=== PATIENT | male | born 1980 | race Caucasian/White ===

== ENCOUNTER 2018-02-08 10:52 | Emergency (ER) | payer SELFPAY ==
[2018-02-08 10:56] VITALS: BP 141/86; PULSE 108; RESP 18; TEMP 37.3; O2SAT 98; BMI 22.8
== END 2018-02-08 13:15 | disposition left against medical advice (07) ==
PROVIDERS: PCP Family Medicine
DX: R42 Dizziness and giddiness (principal)
CPT/HCPCS: 99281; 99282

== ENCOUNTER 2019-01-15 10:05 | Emergency (ER) | payer OTHER, MEDICAID, SELFPAY ==
[2019-01-15] MEDS: HALOPERIDOL 5 MG/ML VIAL 10 MG (10:13)
[2019-01-15] MEDS: LORazepam 2 MG/ML INJ (10:13)
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
[2019-01-15] MEDS: SODIUM CHLORIDE 0.9% 1,000 ML 1000 ML IV (10:52)
[2019-01-15 10:54] VITALS: BP 108/71; PULSE 121; RESP 12; O2SAT 99
[2019-01-15 11:01] LABS: Add Manual Diff / Slide Review NO; Basophils Absolute Auto 100 /uL (0-100); Basophils Percent Auto 0.7 % (0-2); Eosinophils Absolute Auto 0 /uL (0-450); Eosinophils Percent Auto 0.5 % (2-4); Hematocrit 46.5 % (41-53); Hemoglobin 16.5 g/dL (13.5-17.5); Lymphocytes Absolute Auto 1500 /uL (1100-4500); Lymphocytes Percent Auto 15.8 % (25-40); Mean Corpuscular HGB Conc 35.5 % (30-36); Mean Corpuscular Hemoglobin 32.7 PG (26-34); Mean Corpuscular Volume 92.3 fL (80-100); Monocytes Absolute Auto 800 /uL (0-900); Monocytes Percent Auto 7.8 % (3-14); Neutrophils Absolute Auto 7300 /uL (1500-7000); Neutrophils Percent Auto 75.2 % (50-75); Platelet Count 278 X10^3/uL (150-400); Red Blood Cell Count 5.03 X10^6/uL (4.5-5.9); Red Cell Distribution Width 13.2 % (11.6-14.8); White Blood Cell Count 9.7 X10^3/uL (4.5-11.0)
--- NOTE | 2019-01-15 11:01 | PC.NURSE ---
Appears calm but when stimulated yells / lashes out. Unable to remove restraint at this time.
[2019-01-15 11:07] LABS: Acetaminophen < 10 ug/mL (10-30); Alanine Aminotransferase 23 IU/L (21-72); Albumin 4.9 g/dL (3.5-5.0); Albumin Globulin Ratio 1.6 (1.0-2.8); Alkaline Phosphatase 110 U/L (38-126); Aspartate Aminotransferase 44 IU/L (17-59); BUN Creatinine Ratio 14.2 (6-22); Bilirubin Total 1.7 mg/dL (0.2-1.3); Blood Urea Nitrogen 17 mg/dL (9-20); Carbon Dioxide 19 mmol/L (22-32); Chloride 104 mmol/L (98-107); Estimated Glomerular Filt Rate > 60.0 mL/min (>60); Ethanol (ETOH) < 10 mg/dL; Globulin 3.1 g/dL (1.7-4.1); Glucose 145 mg/dL (70-100); HEMOLYSIS 24 (0-50); Potassium 3.4 mmol/L (3.4-5.1); Salicylate < 1.0 mg/dL (<20); Sodium 140 mmol/L (137-145)
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
[2019-01-15 11:31] VITALS: BP 107/64; PULSE 91; RESP 12; O2SAT 99
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
[2019-01-15 11:44] LABS: Thyroid Stimulating Hormone 1.51 uIU/mL (0.47-4.68)
[2019-01-15 12:03] VITALS: BP 108/70; PULSE 100; RESP 18; O2SAT 98
--- NOTE | 2019-01-15 12:10 | PC.NURSE ---
Pt is now a/o x 3. Continues to startle /jump when stimulated but calms w/ verbal reassurance. Taking po fluids when offered. Pt can not verbalize that he will not attempt to hurt staff if I remove remaining restraint. Continues 1:1 observation. Will reassess and remove if he continues to be calm w/o violent actions.
[2019-01-15 13:49] VITALS: BP 110/70; PULSE 90; RESP 18; O2SAT 98
--- NOTE | 2019-01-15 13:59 | PC.NURSE ---
Pt is now a/o when awake and calm, following directions. Denies SI/HI. No urine tox yet (Have offered bathroom frequently). Discussed w/ Dr. Conley. Pt is no longer a threat to himself or others and is a/o x 3. If pt wants to leave, may. Will offer crisis services when pt is more awake. Discontinue 1:1 observation / q 15 min checks.
--- NOTE | 2019-01-15 16:50 | PC.NURSE ---
Awake, alert & oriented x 3. Updated that his son was w/ Jaspreet. Encouraged to eat and drink. Walked to bathroom. Continues to deny SI/HI.
[2019-01-15 16:52] LABS: Bacteria Urine None Seen
[2019-01-15 16:54] VITALS: BP 109/70; PULSE 91; RESP 18; O2SAT 93
[2019-01-15 16:59] LABS: Ur Creatinine Normal (Normal); Ur Specific Gravity Normal (Normal); Urine Tetrahydrocannabinol Positive (Negative); Urine pH Normal (Normal)
[2019-01-15 17:00] LABS: UR Morphine/Opiate cutoff 300 Negative (Negative); Urine Amphetamines Positive (Negative); Urine Barbiturates Negative (Negative); Urine Benzodiazepines Positive (Negative); Urine Cocaine Negative (Negative); Urine MDMA Negative (Negative); Urine Methadone Negative (Negative); Urine Methamphetamines Positive (Negative); Urine Phencyclidine Negative (Negative)
[2019-01-15 17:01] LABS: Urine Oxycodone Negative (Negative); Urine Tricyclic Antidepressant Negative (Negative)
[2019-01-15 17:04] LABS: Culture Indicated Urine Cult Not Indicated; Hyaline Casts Urine 5-10/LPF; Mucus Urine 3+ (Negative); RBC Urine 1-5/HPF (0-5/HPF); Squamous Epithelial Cell Urine 5-10 /HPF (0-5/HPF); WBC Urine 5-10/HPF (0-5/HPF)
[2019-01-15 19:39] VITALS: BP 119/75; PULSE 89; RESP 16; O2SAT 96
--- NOTE | 2019-01-15 19:40 | PC.NURSE ---
Sitting up in bed eating and drinking. Awaiting ride from sister who called and said she was on her way.
[2019-01-15] MEDS: OLANZapine ODT 10 MG TAB PO (21:05)
--- NOTE | 2019-01-15 21:16 | PC.NURSE ---
Patient sitting up in bed eating and drinking. A&Ox3 and denies any hallucinations, SI, or HI. States he wants to go and see his son. I asked him if he would be interested in going to a crisis bed per conversation with Dr. Conley. Patient replies he will talk to his sister about it when she arrives. her ETA is about an hour. She is driving from [employer].
--- NOTE | 2019-01-15 21:21 | PC.NURSE ---
Sister has arrived and is at bedside. I came in to talk with them and she reports he should not go home because he is still hallucinating. He now admits with her at bedside that he is still having command auditory hallucinations. Dr. Ward at bedside. Patient now reports events of the week with some difficulty and is having trouble recalling when he used the meth. He states he has been using it on and off for the last several months maybe once a week since he got his job and stopped drinking alcohol. He states he may have used the meth on thursday, thursday, or thursday. Does not recall using it last night. He reports that he was not being truthful earlier but that he is still hearing voices telling him that he is under surveillance and that his cabin is a studio with cameras and that aliens are watching him. He recalls with detail how the voices were telling him to break a window and take out an outlet and the ceiling at his house last night. He states the voices are still there, denies HI or SI. He also reports that he has had these same auditory hallucinations off and on for the last six months or more. No history of documented mental health issues but sister reports that she suspects this however is unable to fully know if he was sober at the times that he reported the hallucinations to her.
[2019-01-15] MEDS: NICOTINE 21 MG PATCH TOP (21:24)
--- NOTE | 2019-01-15 21:33 | PC.NURSE ---
Per Dr. Ward the plan is to allow the patient to sleep ehre over night and speak with the SR VICE PRESIDENT in the morning. I will call the D[facility] and inform them of the paitnet.
--- NOTE | 2019-01-15 23:25 | PC.NURSE ---
At this time I called CPS to update them on the status of the patient's child Josiah. Per Abigail, who is the patient's sister, Josiah is currently with a Jaspreet Burgos and his who own the property where the patient and his son have been living in a cabin. I informed CPS of this and gave them the phone number for Jaspreet Burgos. I also gave them the number for Emily Stevens who is the patient's sister and has stated that she would be willing and ready to take care of Josiah if need be. She is here since she drove up from [place], [place] and is staying in a [facility]. Jaspreet Burgos: [phone] Emily Stevens: [phone]
--- NOTE | 2019-01-16 00:10 | PC.NURSE ---
Given a warm blanket.
[2019-01-16 02:49] VITALS: BP 108/66; PULSE 80; RESP 20; O2SAT 96
--- NOTE | 2019-01-16 10:46 | PC.NURSE ---
Spoke w/ sister at length who is concerned for pt's welfare. Pt continues to deny SI/HI but believes that his hallucinations while under the influence of meth are real. Denies active hallucinations. Provider to re-evaluate and dispo.
--- NOTE | 2019-01-16 11:01 | PC.NURSE ---
Dr. Conley in to re-evaluate. Will d/c patient. Pt refused services including psych assistance, rehab, drug counseling.
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
== END 2019-01-16 11:39 | disposition home or self-care (01) ==
PROVIDERS: Emergency Provider Emergency Medicine; PCP Family Medicine
DX: F15.929 Other stimulant use, unspecified with intoxication, unspecified (principal)
CPT/HCPCS: 36415; 80053; 80305; 80320; 80329; 81003; 81015; 84443; 85025; 93005; 96361; 96374; 96375; 99285; 99291; 99292; G0480; J1630; J2060

== ENCOUNTER 2019-02-18 17:35 | Emergency (ER) | payer OTHER, MEDICAID, SELFPAY ==
[2019-02-18 17:35] VITALS: PULSE 140; RESP 20; TEMP 37.2; O2SAT 98
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
--- NOTE | 2019-02-18 18:09 | PC.NURSE ---
multiple small areas on rt side of face.
== END 2019-02-18 17:41 | disposition home or self-care (01) ==
LOC: ED 17:45
PROVIDERS: Emergency Provider Emergency Medicine; PCP Family Medicine
DX: Z00.8 Encounter for other general examination (principal); S01.81XA Laceration without foreign body of other part of head, initial encounter; F10.929 Alcohol use, unspecified with intoxication, unspecified
CPT/HCPCS: 99282

== ENCOUNTER 2019-08-06 19:21 | Emergency (ER) | payer OTHER, MEDICAID, SELFPAY ==
[2019-08-06 19:27] VITALS: BP 153/92; PULSE 107; RESP 18; TEMP 37.1; O2SAT 96; BMI 23.7
[2019-08-06 19:47] LABS: Add Manual Diff / Slide Review NO; Basophils Absolute Auto 100 /uL (0-100); Basophils Percent Auto 0.9 % (0-2); Eosinophils Absolute Auto 100 /uL (0-450); Eosinophils Percent Auto 0.9 % (2-4); Hematocrit 45.3 % (41-53); Hemoglobin 15.9 g/dL (13.5-17.5); Lymphocytes Absolute Auto 3700 /uL (1100-4500); Mean Corpuscular HGB Conc 35.1 % (30-36); Mean Corpuscular Hemoglobin 32.5 PG (26-34); Mean Corpuscular Volume 92.6 fL (80-100); Monocytes Absolute Auto 800 /uL (0-900); Monocytes Percent Auto 6.5 % (3-14); Neutrophils Absolute Auto 6900 /uL (1500-7000); Neutrophils Percent Auto 59.7 % (50-75); Platelet Count 212 X10^3/uL (150-400); Red Blood Cell Count 4.89 X10^6/uL (4.5-5.9); Red Cell Distribution Width 13.9 % (11.6-14.8); White Blood Cell Count 11.6 X10^3/uL (4.5-11.0)
--- NOTE | 2019-08-06 19:53 | DI.CT.S_ITS ---
PROCEDURE: CT HEAD/BRAIN WO CON INDICATIONS: mental status change, reports of pain TECHNIQUE: Noncontrast 4.5 mm thick angled axial sections acquired from the foramen magnum to the vertex, with coronal and sagittal reformats. For radiation dose reduction, the following was used: automated exposure control, adjustment of mA and/or kV according to patient size. COMPARISON: [facility], CT, HEAD WITHOUT CONTRAST, 04/13/2016, 16:39. [facility], CT, HEAD WITHOUT CONTRAST, 04/08/2016, 2:07. FINDINGS: Image quality: Excellent. CSF spaces: Basal cisterns are patent. No extra-axial fluid collections. Ventricles are normal in size and shape. Brain: No midline shift. No intracranial masses or hemorrhage. Fortune-white matter interface is normal. Skull and face: Calvarium and visualized facial bones are intact, without suspicious lesions. Sinuses: Visualized sinuses and mastoids are clear. IMPRESSION: Normal for age, source of current altered mental status and pain symptoms is not seen. Dictated by: Jamil Harris M.D. on 08/06/2019 at 20:10 Approved by: Jamil Harris M.D. on 08/06/2019 at 20:11
[2019-08-06 20:01] LABS: Alanine Aminotransferase 26 IU/L (<50); Albumin 4.4 g/dL (3.5-5.0); Albumin Globulin Ratio 1.3 (1.0-2.8); Alkaline Phosphatase 146 U/L (38-126); Aspartate Aminotransferase 31 IU/L (17-59); BUN Creatinine Ratio 13.4 (6-22); Bilirubin Total 0.4 mg/dL (0.2-1.3); Blood Urea Nitrogen 11 mg/dL (9-20); Calcium 8.9 mg/dL (8.4-10.2); Carbon Dioxide 23 mmol/L (22-32); Chloride 108 mmol/L (98-107); Estimated Glomerular Filt Rate > 60.0 mL/min (>60); Globulin 3.4 g/dL (1.7-4.1); Glucose 126 mg/dL (70-100); Potassium 3.8 mmol/L (3.4-5.1); Sodium 143 mmol/L (137-145); Total Protein 7.8 g/dL (6.3-8.2)
[2019-08-06 20:08] LABS: HEMOLYSIS 25 (0-50)
[2019-08-06 20:11] LABS: Ethanol (ETOH) 350 mg/dL
[2019-08-06 20:47] LABS: Thyroid Stimulating Hormone 0.82 uIU/mL (0.47-4.68)
[2019-08-06 20:57] VITALS: BP 143/93; PULSE 104; RESP 16; O2SAT 98
--- NOTE | 2019-08-06 20:57 | ED.PSYCH ---
HPI - Psych General Chief Complaint: Psychiatric Symptoms Stated Complaint: Head pain Time Seen by Provider: 08/06/19 19:22 Source: patient and EMS Mode of arrival: EMS Limitations: no limitations History of Present Illness HPI Narrative: 39-year-old male daily smoker with history of methamphetamine and alcohol use presents by EMS with a chief complaint of headache and hearing voices. He states he called EMS because he has had these symptoms for upwards of a year and he sick of dealing with it. He admittedly takes drugs and drinks alcohol to quiet the voices. He is unsure exactly what they say but he denies any suicidal or homicidal ideation. He lives home alone. He denies any underlying mental health diagnoses. He last used methamphetamines 1-2 weeks ago. MD complaint: other Onset (ago): year(s) Duration: constant History of same: Yes Relieving factors: none Exacerbating factors: none Context: recent alcohol abuse and recent drug abuse Associated psychiatric symptoms: auditory hallucinations Associated symptoms: denies other symptoms Treatments prior to arrival: none Related Data Previous Rx's Medication Instructions Recorded mupirocin 2 % topical ointment 1 applic TOP BID #22 gram 01/14/19 olanzapine 10 mg PO BEDTIME #14 tab 08/06/19 Allergies Allergy/AdvReac Type Severity Reaction Status Date / Time No Known Drug Allergies Allergy Verified 02/08/18 10:56 Review of Systems Constitutional Constitutional: Denies chills, Denies fatigue, Denies fever(s), Denies frequent falls, Denies lethargy and Denies weakness Eyes Eyes: Denies change in vision, Denies eye discharge, Denies irritation and Denies loss of vision ENT Ears, Nose, Mouth, and Throat: Denies change in voice, Denies dizziness, Denies neck pain, Denies sore throat and Denies throat swelling Cardiovascular Cardiovascular: Denies chest pain, Denies irregular heart rhythm, Denies lightheadedness, Denies palpitations, Denies dyspnea, Denies dyspnea on exertion and Denies orthopnea Respiratory Respiratory: Denies cough, Denies dyspnea, Denies dyspnea on exertion and Denies wheezing Gastrointestinal Gastrointestinal: Denies abdominal pain, Denies change in bowel habits, Denies diarrhea, Denies nausea and Denies vomiting Genitourinary Genitourinary: Denies hematuria, Denies flank pain, Denies urinary incontinence and Denies urinary urgency Musculoskeletal Musculoskeletal: Denies back pain, Denies muscle weakness, Denies neck pain, Denies numbness and Denies tingling Integumentary/Breasts Skin/Breast: Denies pruritus, Denies erythema, Denies rash and Denies wounds Neurologic Neurologic: Denies behavioral changes, Denies confusion, Denies dizziness, Denies frequent falls, Denies loss of vision, Denies numbness, Denies tingling and Denies weakness Psychiatric Psychiatric: Denies anxiety, Denies behavioral changes, Denies confusion, Denies depression, Reports hallucinations, Denies homicidal ideation and Denies suicidal ideation Endocrine Endocrine: Denies fatigue, Denies flushing and Denies palpitations Hematologic/Lymphatic Hematologic/Lymphatic: Denies easy bruising Allergic/Immunologic Allergic/Immunologic: Denies urticaria, Denies throat swelling and Denies wheezing Patient History Medical History Alcohol intoxication (Acute) Social History Smoking Status: Current every day smoker alcohol intake: current substance use type: methamphetamine Smoking Status: Current every day smoker alcohol intake frequency: 3 or more drinks per day Substance Use Type: does not use and marijuana Exam Narrative Exam Narrative: GENERAL: [39] year old patient appears stated age. Well-nourished, well-developed patient, mildly unkempt. Slurring of some words. Polite and cooperative HEAD: Atraumatic. Normocephalic. EYES: Pupils equal round and reactive. Extraocular motions intact. No scleral icterus. No injection or drainage. ENT: Nose without bleeding, purulent drainage. Throat without erythema, tonsillar hypertrophy or exudate. Airway patent. NECK: Trachea midline. Non tender CARDIOVASCULAR: Regular rate and rhythm without murmurs, gallops, or rubs. RESPIRATORY: Clear to auscultation. Breath sounds equal bilaterally. No wheezes, rales, or rhonchi. GASTROINTESTINAL: Abdomen soft, non-tender, nondistended. EXTREMITIES: No edema or joint tenderness. BACK: Nontender without deformity or crepitance. No flank tenderness. NEURO: AOx3. SKIN: No rash or erythema of visible areas Initial Vital Signs Initial Vital Signs: Vital Signs Temperature 98.8 F 08/06/19 19:27 Pulse Rate 107 H 08/06/19 19:27 Respiratory Rate 18 08/06/19 19:27 Blood Pressure 153/92 H 08/06/19 19:27 Pulse Oximetry 96 08/06/19 19:27 Course Course Course Narrative: 39-year-old male feeling much better after above-stated therapies. He says is speaking clearly and ambulates with a steady gait. He has no suicidal or homicidal ideation. He has good insight in wants to follow up with his doctors. He is able to contract for safety and demonstrates no safety risk to himself or others. Orders Ordered: ED Orders 08/06/19 19:38 EKG-12 Lead Stat 08/06/19 19:40 Complete Blood Count AUTO DIFF Stat Comprehensive Metabolic Panel Stat Ethanol (ETOH) Stat Thyroid Stimulating Hormone Stat 08/06/19 19:53 CT head/brain wo con Stat 08/06/19 20:40 Urine Drug Screen, Rapid Stat Discontinued Medications Olanzapine (Zyprexa Zydis) 10 mg PO NOW ONE Stop: 08/06/19 21:32 Last Admin: 08/06/19 21:34 Dose: 10 mg Documented by: JUAN ANTONIO Vital Signs Vital signs: Vital Signs - 8 hr 08/06/19 19:27 08/06/19 20:57 08/06/19 22:16 Temperature 98.8 F Pulse Rate 107 H 104 H 116 H Respiratory Rate 18 16 Blood Pressure 153/92 H Blood Pressure [rt arm] 143/93 H 156/84 H Pulse Oximetry 96 98 96 MDM - Psych Lab Data Result diagrams: 08/06/19 19:40 08/06/19 19:40 Labs: Lab Results 08/06/19 08/06/19 08/06/19 Range/Units 19:40 19:40 19:40 WBC 11.6 H (4.5-11.0) X10^3/uL RBC 4.89 (4.5-5.9) X10^6/uL Hgb 15.9 (13.5-17.5) g/dL Hct 45.3 (41-53) % MCV 92.6 (80-100) fL MCH 32.5 (26-34) PG MCHC 35.1 (30-36) % RDW 13.9 (11.6-14.8) % Plt Count 212 (150-400) X10^3/uL Neut % (Auto) 59.7 (50-75) % Lymph % (Auto) 32.0 (25-40) % [place] % (Auto) 6.5 (3-14) % Eos % (Auto) 0.9 L (2-4) % Baso % (Auto) 0.9 (0-2) % Neut # (Auto) 6900 (0302-2935) /uL Lymph # (Auto) 3700 (0455-2479) /uL [place] # (Auto) 800 (0-900) /uL Eos # (Auto) 100 (0-450) /uL Baso # (Auto) 100 (0-100) /uL Sodium 143 (137-145) mmol/L Potassium 3.8 (3.4-5.1) mmol/L Chloride 108 H (98-107) mmol/L Carbon Dioxide 23 (22-32) mmol/L BUN 11 (9-20) mg/dL Creatinine 0.82 (0.66-1.25) mg/dL Estimated GFR > 60.0 (>60) mL/min BUN/Creatinine Ratio 13.4 (6-22) Glucose 126 H (70-100) mg/dL Calcium 8.9 (8.4-10.2) mg/dL Total Bilirubin 0.4 (0.2-1.3) mg/dL AST 31 (17-59) IU/L ALT 26 (<50) IU/L Alkaline Phosphatase 146 H (38-126) U/L Total Protein 7.8 (6.3-8.2) g/dL Albumin 4.4 (3.5-5.0) g/dL Globulin 3.4 (1.7-4.1) g/dL Albumin/Globulin Ratio 1.3 (1.0-2.8) TSH 0.82 (0.47-4.68) uIU/mL U Opiates 300ng/mL cut (Negative) Ur Oxycodone Screen (Negative) Urine Methadone Screen (Negative) Ur Barbiturates Screen (Negative) U Tricyclic Antidepress (Negative) Ur Phencyclidine Scrn (Negative) Ur Amphetamines Screen (Negative) U Methamphetamines Scrn (Negative) Ur MDMA Scrn (Ecstasy) (Negative) U Benzodiazepines Scrn (Negative) Urine Cocaine Screen (Negative) U Marijuana (THC) Screen (Negative) Ethyl Alcohol 350 H ( - 10) mg/dL 08/06/19 Range/Units 20:40 WBC (4.5-11.0) X10^3/uL RBC (4.5-5.9) X10^6/uL Hgb (13.5-17.5) g/dL Hct (41-53) % MCV (80-100) fL MCH (26-34) PG MCHC (30-36) % RDW (11.6-14.8) % Plt Count (150-400) X10^3/uL Neut % (Auto) (50-75) % Lymph % (Auto) (25-40) % [place] % (Auto) (3-14) % Eos % (Auto) (2-4) % Baso % (Auto) (0-2) % Neut # (Auto) (9464-7043) /uL Lymph # (Auto) (6990-4259) /uL [place] # (Auto) (0-900) /uL Eos # (Auto) (0-450) /uL Baso # (Auto) (0-100) /uL Sodium (137-145) mmol/L Potassium (3.4-5.1) mmol/L Chloride (98-107) mmol/L Carbon Dioxide (22-32) mmol/L BUN (9-20) mg/dL Creatinine (0.66-1.25) mg/dL Estimated GFR (>60) mL/min BUN/Creatinine Ratio (6-22) Glucose (70-100) mg/dL Calcium (8.4-10.2) mg/dL Total Bilirubin (0.2-1.3) mg/dL AST (17-59) IU/L ALT (<50) IU/L Alkaline Phosphatase (38-126) U/L Total Protein (6.3-8.2) g/dL Albumin (3.5-5.0) g/dL Globulin (1.7-4.1) g/dL Albumin/Globulin Ratio (1.0-2.8) TSH (0.47-4.68) uIU/mL U Opiates 300ng/mL cut Negative (Negative) Ur Oxycodone Screen Negative (Negative) Urine Methadone Screen Negative (Negative) Ur Barbiturates Screen Negative (Negative) U Tricyclic Antidepress Negative (Negative) Ur Phencyclidine Scrn Negative (Negative) Ur Amphetamines Screen Negative (Negative) U Methamphetamines Scrn Negative (Negative) Ur MDMA Scrn (Ecstasy) Negative (Negative) U Benzodiazepines Scrn Negative (Negative) Urine Cocaine Screen Negative (Negative) U Marijuana (THC) Screen Negative (Negative) Ethyl Alcohol ( - 10) mg/dL Urine Dip Bedside Urine Glucose Negative Bedside Urine Bilirubin - Negative Bedside Urine Ketone - Negative Urine Specific [place] 1.010 Bedside Urine Occult Blood - Negative Bedside Urine pH 6.0 Bedside Urine Protein - Negative Bedside Urine Urobilinogen - Negative Bedside Urine Nitrite - Negative Bedside Urine Leukocytes - Negative Esterase Imaging Data CT scan - head: Radiologist's Impression: Nelson Whitt 39 M [address] [address] [address] Scan Report Signed Patient: Nelson Whitt LMR#: [id number] : 1980Acct:[id number] Age/Sex: 39 / MDate of Service: 08/06/19 Loc: ED Accession Number: [id number] Procedure: CT head/brain wo con Ordering Provider: Dann Ward D.O. PROCEDURE: CT HEAD/BRAIN WO CON INDICATIONS: mental status change, reports of pain TECHNIQUE: Noncontrast 4.5 mm thick angled axial sections acquired from the foramen magnum to the vertex, with coronal and sagittal reformats. For radiation dose reduction, the following was used: automated exposure control, adjustment of mA and/or kV according to patient size. COMPARISON: [facility], CT, HEAD WITHOUT CONTRAST, 04/13/2016, 16:39. [facility], CT, HEAD WITHOUT CONTRAST, 04/08/2016, 2:07. FINDINGS: Image quality: Excellent. CSF spaces: Basal cisterns are patent. No extra-axial fluid collections. Ventricles are normal in size and shape. Brain: No midline shift. No intracranial masses or hemorrhage. [place]-white matter interface is normal. Skull and face: Calvarium and visualized facial bones are intact, without suspicious lesions. Sinuses: Visualized sinuses and mastoids are clear. IMPRESSION: Normal for age, source of current altered mental status and pain symptoms is not seen. Dictated by: Jamil Harris M.D. on 08/06/2019 at 20:10 Approved by: Jamil Harris M.D. on 08/06/2019 at 20:11 Discharge Plan Departure Patient Disposition: Home Clinical Impression: Alcohol intoxication Qualifiers: Complication of substance-induced condition: uncomplicated Qualified Code(s): F10.920 - Alcohol use, unspecified with intoxication, uncomplicated Instructions: DI for Psychosis Activity Restrictions/Additional Instructions: *You have been diagnosed with [auditory hallucinations] *What to do: *Take medications as directed *Follow up with your primary care provider in 2-3 days, call for an appointment. Let them know you were seen in the Emergency Department and that we ask that you be seen in follow up *Return to ER if you should have any new, worsening or concerning symptoms Prescriptions: New olanzapine 10 mg tablet 10 mg PO BEDTIME Qty: 14 RF: 0 No Action mupirocin 2 % ointment 1 applic TOP BID Qty: 22 RF: 0 Referrals: [facility] [Outside] [facility] [Outside] Jose Olivo MD [Physician] - Luis Miguel Zheng MD [Primary Care Provider] -
[2019-08-06 21:03] LABS: UR Morphine/Opiate cutoff 300 Negative (Negative); Ur Creatinine Normal (Normal); Ur Specific Gravity Normal (Normal); Urine Amphetamines Negative (Negative); Urine Barbiturates Negative (Negative); Urine Benzodiazepines Negative (Negative); Urine Cocaine Negative (Negative); Urine MDMA Negative (Negative); Urine Methadone Negative (Negative); Urine Methamphetamines Negative (Negative); Urine Oxycodone Negative (Negative); Urine Phencyclidine Negative (Negative); Urine Tetrahydrocannabinol Negative (Negative); Urine Tricyclic Antidepressant Negative (Negative); Urine pH Normal (Normal)
[2019-08-06] MEDS: OLANZapine ODT 10 MG TAB PO (21:34)
[2019-08-06 22:16] VITALS: BP 156/84; PULSE 116; O2SAT 96
== END 2019-08-06 22:32 | disposition home or self-care (01) ==
PROVIDERS: Emergency Provider Emergency Medicine; PCP Family Medicine
DX: F10.920 Alcohol use, unspecified with intoxication, uncomplicated (principal); R44.0 Auditory hallucinations; R51 Headache; R47.81 Slurred speech
CPT/HCPCS: 36415; 70450; 80053; 80305; 80320; 81003; 84443; 85025; 93005; 99285

== ENCOUNTER 2019-08-22 19:41 | Inpatient (IN) | payer OTHER, MEDICAID, SELFPAY ==
[2019-08-22 19:52] VITALS: BP 157/90; PULSE 73; RESP 18; TEMP 37.1; O2SAT 100; BMI 25.0
[2019-08-22 20:29] VITALS: BP 138/87; PULSE 73; RESP 17; O2SAT 97
[2019-08-22] MEDS: MAGNESIUM SULFATE 2 GM, FOLIC ACID 1 MG, THIAMINE 100 MG, MULTIVITAMIN 10 ML in SODIUM ... IV (20:36)
[2019-08-22] MEDS: LORazepam 2 MG/ML INJ IV (20:36)
[2019-08-22 20:48] LABS: Add Manual Diff / Slide Review NO; Basophils Absolute Auto 0 /uL (0-100); Basophils Percent Auto 0.9 % (0-2); Eosinophils Absolute Auto 0 /uL (0-450); Eosinophils Percent Auto 0.3 % (2-4); Hematocrit 41.4 % (41-53); Hemoglobin 14.9 g/dL (13.5-17.5); Lymphocytes Absolute Auto 1100 /uL (1100-4500); Lymphocytes Percent Auto 20.2 % (25-40); Mean Corpuscular Hemoglobin 32.7 PG (26-34); Mean Corpuscular Volume 90.6 fL (80-100); Monocytes Absolute Auto 400 /uL (0-900); Monocytes Percent Auto 7.6 % (3-14); Neutrophils Absolute Auto 4000 /uL (1500-7000); Platelet Count 153 X10^3/uL (150-400); Red Blood Cell Count 4.56 X10^6/uL (4.5-5.9); Red Cell Distribution Width 14.4 % (11.6-14.8); White Blood Cell Count 5.6 X10^3/uL (4.5-11.0)
[2019-08-22 20:49] LABS: Alanine Aminotransferase 82 IU/L (<50); Albumin 4.4 g/dL (3.5-5.0); Albumin Globulin Ratio 1.3 (1.0-2.8); Alkaline Phosphatase 100 U/L (38-126); Aspartate Aminotransferase 69 IU/L (17-59); BUN Creatinine Ratio 20.5 (6-22); Bilirubin Total 1.3 mg/dL (0.2-1.3); Bilirubin Unconjugated 1.1 mg/dL (0.0-1.1); Blood Urea Nitrogen 16 mg/dL (9-20); Calcium 9.6 mg/dL (8.4-10.2); Carbon Dioxide 25 mmol/L (22-32); Chloride 97 mmol/L (98-107); Estimated Glomerular Filt Rate > 60.0 mL/min (>60); Ethanol (ETOH) < 10 mg/dL; Globulin 3.5 g/dL (1.7-4.1); Glucose 99 mg/dL (70-100); HEMOLYSIS 85 (0-50); Lipase 202 U/L (23-300); Magnesium 1.9 mg/dL (1.6-2.3); Potassium 4.6 mmol/L (3.4-5.1); Sodium 133 mmol/L (137-145); Total Protein 7.9 g/dL (6.3-8.2)
[2019-08-22 22:19] LABS: UR Morphine/Opiate cutoff 300 Negative (Negative); Ur Creatinine Normal (Normal); Ur Specific Gravity Normal (Normal); Urine Amphetamines Negative (Negative); Urine Barbiturates Negative (Negative); Urine Benzodiazepines Negative (Negative); Urine Cocaine Negative (Negative); Urine MDMA Negative (Negative); Urine Methadone Negative (Negative); Urine Methamphetamines Negative (Negative); Urine Oxycodone Negative (Negative); Urine Phencyclidine Negative (Negative); Urine Tetrahydrocannabinol Positive (Negative); Urine Tricyclic Antidepressant Negative (Negative); Urine pH Normal (Normal)
--- NOTE | 2019-08-22 23:09 | ED_ITS ---
HPI - General Adult General Chief complaint: Toxicology Problem Stated complaint: ETOH withdrawls Time Seen by Provider: 08/22/19 19:58 Source: patient and EMS Mode of arrival: EMS History of Present Illness HPI narrative: 39-year-old gentleman with alcohol use disorder presents requesting help with sobriety. He has been drinking up to half a gal of vodka a day he stopped completely yesterday and is beginning to have moderate withdrawal symptoms. He also has a myriad of other neurologic complaints including difficulty walking, he states that he is so shaky in his legs are so weak that he is unable to walk across the room without using arms to support himself. He complains of peripheral neuropathy. Also notes voices that are talking to him, typically friends and not having command hallucinations. Has no visual hallucinations. Most recently the voices are telling him that there is something in his left ear that he needs to have evaluated. He notes dramatic fluctuations in weight recently. He was incarcerated and once discharged gained 40 lb now has been in isolation in a hotel during the lock-down and has lost 20 lb. He believes that this is directly to related to what he is eating. He was seen in the emergency room approximately 2 weeks ago with similar complaints. A head CT at that time was unremarkable. He was given a prescription for olanzapine but has not tried it. At this time, he is feeling u nsafe in terms of being able to walk because of the weakness, is the voices more and more interested and more concerning. When asked about his methamphetamine use he states that he rarely uses it and believes it has been over a month since his last use. He denies other drug use. Related Data Previous Rx's Medication Instructions Recorded mupirocin 2 % topical ointment 1 applic TOP BID #22 gram 01/14/19 olanzapine 10 mg PO BEDTIME #14 tab 08/06/19 Allergies Allergy/AdvReac Type Severity Reaction Status Date / Time No Known Drug Allergies Allergy Verified 02/08/18 10:56 Review of Systems Review of Systems Narrative: Pertinent positive and negative findings as per HPI Remainder of review of systems is otherwise unremarkable for Constitutional: Fevers, chills, ENT: No sore throat, neck pain, ear pain CV: Chest pain, palpitations, Respiratory: Cough, wheeze, dyspnea GI: Nausea, diarrhea, change in bowel habits, black or bloody stools : Dysuria, hematuria, flank pain Skin: Rashes, nonhealing lesions Neuro: Syncope, dizziness, Psych: Depression, anxiety, suicidal ideation Endocrine: heat or cold intolerance, very dry skin Heme: Easy bruising or bleeding Patient History Medical History Alcohol intoxication (Acute) Alcohol use disorder (Acute) Social History household members: none Smoking Status: Smoker, status unknown alcohol intake: current substance use type: methamphetamine Smoking Status: Current every day smoker alcohol intake frequency: 3 or more drinks per day Substance Use Type: marijuana Exam Narrative Exam Narrative: General: Healthy appearing, in no mild distress. Able to give a complete history. Disheveled HEENT: Moist mucous membranes, normal sclera with reactive pupils, Neck: No JVD, supple Respiratory: Lungs are clear to auscultation, no wheezing no rales no rhonchi. Full and symmetrical air movement Cardiac: Regular rate and rhythm no murmurs no bruits Abdomen: Soft nontender good bowel tones, no hepatosplenomegaly no flank pain Skin: Warm and dry, no rashes, no palmar erythema or spider angiomas Neurologic: Globally weak, horizontal nystagmus with extreme rightward gaze. Significant weakness with tremor wide-based gait and inability to lift leg to begin forward walking motion without using arms for assistance. Extremities: No trauma, well perfused Psych: Cooperative, flat affect, complains of auditory hallucination but not responding to internal stimuli during our exam Initial Vital Signs Initial Vital Signs: Vital Signs Temperature 98.7 F 08/22/19 19:52 Pulse Rate 73 08/22/19 19:52 Respiratory Rate 18 08/22/19 19:52 Blood Pressure 157/90 H 08/22/19 19:52 Pulse Oximetry 100 08/22/19 19:52 Course Orders Ordered: ED Orders 08/22/19 19:58 Consult to [facility] - Automatic Wheel Line Operator Stat 08/22/19 20:28 Complete Blood Count AUTO DIFF Stat Comprehensive Metabolic Panel Stat Ethanol (ETOH) Stat Hepatic (Liver) Panel Stat Lipase Stat Magnesium Stat 08/22/19 21:44 Urine Drug Screen, Rapid Stat Acetaminophen (Tylenol) 650 mg PO Q6HR PRN PRN Reason: Fever/Mild Pain (1-3) Chlordiazepoxide HCl (Librium) 25 mg PO TID [facility] Clonidine HCl (Catapres) 0.1 mg PO Q4HR PRN PRN Reason: Alcohol Withdrawal Clonidine HCl (Catapres) 0.1 mg PO Q4HR PRN PRN Reason: Alcohol Withdrawal Folic Acid (Folic Acid) 1 mg PO DAILY [facility] Folic Acid (Folic Acid) 1 mg PO DAILY [facility] Magnesium Sulfate 2 gm/ Folic Acid 1 mg/ Thiamine HCl 100 mg / Multivitamins 10 ml/ Sodium Chloride 1,015.2 mls @ 125 mls/hr IV NOW ONE Stop: 08/23/19 04:05 Last Infusion: 08/23/19 00:53 Dose: 0 mls/hr Documented by: Admin: 08/22/19 20:36 Dose: 125 mls/hr Documented by: CRISTOFER Sodium Chloride (Normal Saline 0.9%) 1,000 mls @ 125 mls/hr IV CONT [facility] Ibuprofen (Advil) 600 mg PO Q6HR PRN PRN Reason: Fever/Mild Pain (1-3) Lorazepam (Ativan) 2 mg PO Q4HR [facility]; Protocol Multivitamins (Tab-A-Gaudencio) 1 tab PO DAILY [facility] Multivitamins (Tab-A-Gaudencio) 1 tab PO DAILY [facility] Naloxone HCl (Narcan) 0.2 mg IV Q2MIN PRN PRN Reason: Opiate Reversal Nicotine (Nicoderm) 14 mg TOP DAILY [facility] Ondansetron HCl (Zofran) 4 mg IV Q8HR PRN PRN Reason: Nausea And Vomiting Ondansetron HCl (Zofran) 4 mg IV Q6HR PRN PRN Reason: Nausea And Vomiting Thiamine HCl (Vitamin B-1) 100 mg PO DAILY [facility] Stop: 08/26/19 09:01 Thiamine HCl (Vitamin B-1) 100 mg PO DAILY [facility] Stop: 08/26/19 09:01 Discontinued Medications Lorazepam (Ativan) 2 mg IV NOW ONE Stop: 08/22/19 19:59 Last Admin: 08/22/19 20:36 Dose: 2 mg Documented by: CRISTOFER Lorazepam (Ativan) 0 mg IV CIWAPRN PRN; Protocol PRN Reason: Alcohol Withdrawal Lorazepam (Ativan) 2 mg PO CIWAPRN PRN PRN Reason: Alcohol Withdrawal Vital Signs Vital signs: Vital Signs - 8 hr 08/22/19 19:52 08/22/19 20:29 Temperature 98.7 F Pulse Rate 73 73 Respiratory Rate 18 17 Blood Pressure 157/90 H Blood Pressure [Right Arm] 138/87 Pulse Oximetry 100 97 Medical Decision Making Medical Records Medical records reviewed: Yes I reviewed the patient's medical records. Lab Data Lab results reviewed: Yes I reviewed the patient's lab results. Result diagrams: 08/22/19 20:28 08/22/19 20:28 Labs: Lab Results 08/22/19 08/22/19 08/22/19 Range/Units 20:28 20:28 21:44 WBC 5.6 (4.5-11.0) X10^3/uL RBC 4.56 (4.5-5.9) X10^6/uL Hgb 14.9 (13.5-17.5) g/dL Hct 41.4 (41-53) % MCV 90.6 (80-100) fL MCH 32.7 (26-34) PG MCHC 36.0 (30-36) % RDW 14.4 (11.6-14.8) % Plt Count 153 (150-400) X10^3/uL Neut % (Auto) 71.0 (50-75) % Lymph % (Auto) 20.2 L (25-40) % [place] % (Auto) 7.6 (3-14) % Eos % (Auto) 0.3 L (2-4) % Baso % (Auto) 0.9 (0-2) % Neut # (Auto) 4000 (4323-3934) /uL Lymph # (Auto) 1100 (1964-7009) /uL [place] # (Auto) 400 (0-900) /uL Eos # (Auto) 0 (0-450) /uL Baso # (Auto) 0 (0-100) /uL Sodium 133 L (137-145) mmol/L Potassium 4.6 (3.4-5.1) mmol/L Chloride 97 L (98-107) mmol/L Carbon Dioxide 25 (22-32) mmol/L BUN 16 (9-20) mg/dL Creatinine 0.78 (0.66-1.25) mg/dL Estimated GFR > 60.0 (>60) mL/min BUN/Creatinine Ratio 20.5 (6-22) Glucose 99 (70-100) mg/dL Calcium 9.6 (8.4-10.2) mg/dL Magnesium 1.9 (1.6-2.3) mg/dL Total Bilirubin 1.3 (0.2-1.3) mg/dL Conjugated Bilirubin 0.0 (0.0-0.3) md/dL Unconjugated Bilirubin 1.1 (0.0-1.1) mg/dL AST 69 H (17-59) IU/L ALT 82 H (<50) IU/L Alkaline Phosphatase 100 (38-126) U/L Total Protein 7.9 (6.3-8.2) g/dL Albumin 4.4 (3.5-5.0) g/dL Globulin 3.5 (1.7-4.1) g/dL Albumin/Globulin Ratio 1.3 (1.0-2.8) Lipase 202 (23-300) U/L U Opiates 300ng/mL cut Negative (Negative) Ur Oxycodone Screen Negative (Negative) Urine Methadone Screen Negative (Negative) Ur Barbiturates Screen Negative (Negative) U Tricyclic Antidepress Negative (Negative) Ur Phencyclidine Scrn Negative (Negative) Ur Amphetamines Screen Negative (Negative) U Methamphetamines Scrn Negative (Negative) Ur MDMA Scrn (Ecstasy) Negative (Negative) U Benzodiazepines Scrn Negative (Negative) Urine Cocaine Screen Negative (Negative) U Marijuana (THC) Screen Positive H (Negative) Ethyl Alcohol < 10 ( - 10) mg/dL Urine Dip Bedside Urine Glucose Negative Bedside Urine Bilirubin - Negative Bedside Urine Ketone + 15 Urine Specific [place] 1.010 Bedside Urine Occult Blood - Negative Bedside Urine pH 7.5 Bedside Urine Protein +/- 15 Bedside Urine Urobilinogen - Negative Bedside Urine Nitrite - Negative Bedside Urine Leukocytes - Negative Esterase Urine is in fact free from methamphetamine. Mild transaminase elevation consistent with alcohol hepatitis. Remainder of labs are reassuring Point of care testing: Urine Dip Bedside Urine Glucose Negative Bedside Urine Bilirubin - Negative Bedside Urine Ketone + 15 Urine Specific [place] 1.010 Bedside Urine Occult Blood - Negative Bedside Urine pH 7.5 Bedside Urine Protein +/- 15 Bedside Urine Urobilinogen - Negative Bedside Urine Nitrite - Negative Bedside Urine Leukocytes - Negative Esterase [facility] Narrative Medical decision making narrative: 39-year-old gentleman who has had periods of heavy drinking over the years. Currently interested in stopping. He notes that he has had seizure-like activity when he has tried to stop drinking but has not had overt seizures. Over the past weeks he has noticed that his gait has become increasingly unstable and weaker to the point that he is unable to truly ambulate at this time. He is cognitively appropriate at this time. He reports auditory hallucinations but is not responding to be used during our conversat ion. Denies any visual hallucinations. Notes that the hallucinations have been bothering him for over a year and that was part of the reason he was drinking, to quiet the voices. Given the significant dietary changes recent dramatic weight fluctuations and the progressive neurologic symptoms and gait difficulties I am concerned that this may be presentation of thiamin deficiency/wernicke-Korsdkoff syndrome. I am going to recommend a medical admission for complete alcohol detox. We may be able to obtain inpatient psychiatric consultation regarding the auditory hallucinations and then help him figure out which type of longer term treatment is going to be best for his alcohol use disorder. Discharge Plan Departure Admit Date/Time: 08/23/19 00:50 Admit Provider: Kati Bryant
[2019-08-23] VITALS (14 sets, daily range): BP systolic 123–147; BP diastolic 77–91; PULSE 58–79; RESP 16–28; TEMP 36.6–37.1; O2SAT 98–100; BMI 25.0
--- NOTE | 2019-08-23 02:40 | P.HP_ITS ---
History of Present Illness History of Present Illness Date Patient Seen: 08/23/19 Time Patient Seen: 01:00 Chief complaint: ETOH withdrawal, unable to walk, hallucinations Narrative: Nelson Whitt is a 39-year-old male with multiple visits and 1 prior inpatient hospitalization who presents for alcohol withdrawal. He states that he has been drinking about 1 bottle of vodka daily. States that he has been hearing voices for over a year and they tell him to yusuf ck out a foreign object in his ear. He was requesting an x-ray to see if there was something in his ears. The patient denies a history of psychiatric diagnoses or any family history of such including bipolar disorder or schizophrenia. Review of his prior chart indicated that on other occasions when he was seen in the emergency department for either alcohol or methamphetamine abuse, he was hallucinating during those times. The patient did state he has been through inpatient rehab once a few years ago. Per the ED for provider the patient was unable to walk and when he did try to walk he was holding on to anything on the periphery and walking with a very wide gait. Patient also indicated he had troubles walking and needed to balance himself against other objects or the jain to walk. The ED provider indicated to me that the patient was observing COVID-19 sord-ru-ysud orders and apparently put on quite a bit a weight. Then he started to drink and lost much of the weight that he had previously gained. I was not able to observe his walking however in the ED was determined he was not safe to be able to walk or go home. Patient denies shortness of breath, chest pain, abdominal pain, he does endorse having diarrhea for about the last week and complaints of inability to walk as stated above. Patient History Medical History Alcohol intoxication (Acute) Alcohol use disorder (Acute) Alcohol withdrawal delirium, acute, mixed level of activity (Acute) Family & Social History Family History Father Fire accident Mother Cancer Social History: household members none Prior Living Arrangements Homeless Safety & Behavioral: Feels Safe in Current Yes Environment Been Physically Hurt or No Threatened By a Person Suicidal Ideation Description None Suicide Plan Description No Plan Tobacco & Substance use: Tobacco type cigarettes Smoking Status Smoker, status unknown Smoking packs per day 1 alcohol intake current, alcohol intake frequency 1/2 bottle of vodka/day Substance Use Type marijuana, prior hx of methamphetamine use Meds Home Medications and Allergies Home Medications Medication Instructions Recorded Confirmed Type mupirocin 2 % topical ointment 1 applic TOP BID #22 gram 01/14/19 01/14/19 Rx olanzapine 10 mg PO BEDTIME #14 tab 08/06/19 Rx Allergies Allergy/AdvReac Type Severity Reaction Status Date / Time No Known Drug Allergies Allergy Verified 02/08/18 10:56 Review of Systems Review of Systems ROS: Yes All systems reviewed with the patient and are negative except as otherwise documented Exam Vital Signs (past 8 hours): - 08/22/19 19:52 08/22/19 20:29 08/23/19 01:32 Temperature 98.7 F 97.8 F Pulse Rate 73 73 78 Respiratory Rate 18 17 28 H Blood Pressure 157/90 H 147/88 H Blood Pressure [Right Arm] 138/87 Pulse Oximetry 100 97 99 08/23/19 01:34 Temperature 97.8 F Pulse Rate 78 Respiratory Rate 28 H Blood Pressure 147/88 H Blood Pressure [Right Arm] Pulse Oximetry 99 Oxygen Delivery Method Room Air Oxygen Flow Rate 0 Narrative Exam Narrative: Gen: Alert, oriented, well-developed 39 y.o. male, lethargic HEENT: normocephalic, atraumatic, conjunctiva clear, sclera non-icteric, has a vertical and superficial laceration of the lower lip, oral mucosa pink and moist Neck: supple, full ROM, no JVD, trachea is midline Resp: Lungs CTA, non-labored breathing CV: RRR, no murmur or rubs Abd: soft, non-tender, normoactive BTs Skin: no lesions or rashes, dry and intact Neuro: Very tremulous, unable to sit upright steadily, alert and oriented X 2 Extremities: moves all 4 extremities, negative Rory?s sign Psyche: lethargic, normal mood and affect. Objective Labs Result Diagrams: 08/22/19 20:28 08/22/19 20:28 Labs: Laboratory Results - last 24 hr 08/22/19 08/22/19 08/22/19 20:28 20:28 21:44 WBC 5.6 RBC 4.56 Hgb 14.9 Hct 41.4 MCV 90.6 MCH 32.7 MCHC 36.0 RDW 14.4 Plt Count 153 Neut % (Auto) 71.0 Lymph % (Auto) 20.2 L [place] % (Auto) 7.6 Eos % (Auto) 0.3 L Baso % (Auto) 0.9 Neut # (Auto) 4000 Lymph # (Auto) 1100 [place]atham # (Auto) 400 Eos # (Auto) 0 Baso # (Auto) 0 Sodium 133 L Potassium 4.6 Chloride 97 L Carbon Dioxide 25 BUN 16 Creatinine 0.78 Estimated GFR > 60.0 BUN/Creatinine Ratio 20.5 Glucose 99 Calcium 9.6 Magnesium 1.9 Total Bilirubin 1.3 Conjugated Bilirubin 0.0 Unconjugated Bilirubin 1.1 AST 69 H ALT 82 H Alkaline Phosphatase 100 Total Protein 7.9 Albumin 4.4 Globulin 3.5 Albumin/Globulin Ratio 1.3 Lipase 202 U Opiates 300ng/mL cut Negative Ur Oxycodone Screen Negative Urine Methadone Screen Negative Ur Barbiturates Screen Negative U Tricyclic Antidepress Negative Ur Phencyclidine Scrn Negative Ur Amphetamines Screen Negative U Methamphetamines Scrn Negative Ur MDMA Scrn (Ecstasy) Negative U Benzodiazepines Scrn Negative Urine Cocaine Screen Negative U Marijuana (THC) Screen Positive H Ethyl Alcohol < 10 Assessment & Plan Assessment & Plan narrative: Nelson Whitt will be admitted for acute alcohol withdrawal and for a psyche shannan luation of his hallucinations Acute alcohol withdrawal, present on admission -patient was very tremulous and unable to ambulate -WA protocol with p.o. 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 Olivo, psychiatry, please call him in the morning -patient is likely going to require an inpatient psychiatric stay to get a better handle on his auditory hallucinations which may be causing him to drink Consults: Dr. Olivo, Psychiatry, consult and involvement is appreciated. Patient is inpatient status as his stay islikely to exceed 2 midnights. FEN: NS at 125 ml/hour after completion of the banana bag, regular diet, CMP in the am. VTE prophylaxis: Bilateral compression stockings Dispo: Unknown at this time Code Status: Full code COVID-19 COVID-19 status: Not tested
[2019-08-23] MEDS: IBUPROFEN 600 MG TABLET PO ×2 (03:15→08:49)
[2019-08-23] MEDS: chlordiazePOXIDE 25 MG CAPSULE PO ×4 (03:15→20:53)
[2019-08-23] MEDS: THIAMINE 100 MG TABLET PO ×2 (03:15→08:49)
--- NOTE | 2019-08-23 03:26 | PC.NURSE ---
Entry Level Finance Note: 0110: Admitted to ICU room 228 as floor care patient, from ER, via wheelchair. Vital signs stable. Pt is alert, oriented X3. IV in place in rt upper arm. Pt placed on telemetry. Pt oriented to room and nurse call simon. SCDs placed.
[2019-08-23 05:02] LABS: Add Manual Diff / Slide Review NO; Basophils Absolute Auto 100 /uL (0-100); Eosinophils Absolute Auto 0 /uL (0-450); Eosinophils Percent Auto 0.8 % (2-4); Hematocrit 40.8 % (41-53); Hemoglobin 14.7 g/dL (13.5-17.5); Lymphocytes Absolute Auto 1900 /uL (1100-4500); Lymphocytes Percent Auto 33.8 % (25-40); Mean Corpuscular Hemoglobin 32.9 PG (26-34); Mean Corpuscular Volume 91.4 fL (80-100); Monocytes Absolute Auto 600 /uL (0-900); Monocytes Percent Auto 11.2 % (3-14); Neutrophils Absolute Auto 3000 /uL (1500-7000); Neutrophils Percent Auto 53.2 % (50-75); Platelet Count 147 X10^3/uL (150-400); Red Blood Cell Count 4.46 X10^6/uL (4.5-5.9); Red Cell Distribution Width 14.4 % (11.6-14.8); White Blood Cell Count 5.6 X10^3/uL (4.5-11.0)
[2019-08-23 05:12] LABS: Alanine Aminotransferase 74 IU/L (<50); Albumin Globulin Ratio 1.2 (1.0-2.8); Alkaline Phosphatase 107 U/L (38-126); Aspartate Aminotransferase 75 IU/L (17-59); Bilirubin Total 0.8 mg/dL (0.2-1.3); Blood Urea Nitrogen 16 mg/dL (9-20); Calcium 9.3 mg/dL (8.4-10.2); Carbon Dioxide 28 mmol/L (22-32); Chloride 99 mmol/L (98-107); Estimated Glomerular Filt Rate > 60.0 mL/min (>60); Globulin 3.3 g/dL (1.7-4.1); Glucose 105 mg/dL (70-100); HEMOLYSIS < 15 (0-50); Potassium 4.9 mmol/L (3.4-5.1); Sodium 134 mmol/L (137-145); Total Protein 7.3 g/dL (6.3-8.2)
[2019-08-23] MEDS: SODIUM CHLORIDE 0.9% 1,000 ML 125 ML IV ×3 (05:21→22:08)
[2019-08-23] MEDS: LORazepam 1 MG TABLET 2 MG PO ×5 (05:21→20:54)
[2019-08-23] MEDS: NICOTINE 7 MG PATCH TOP (08:45)
[2019-08-23] MEDS: FOLIC ACID 1 MG TABLET PO (08:50)
[2019-08-23] MEDS: MULTIVITAMIN 1 TABLET 1 TAB PO (08:50)
--- NOTE | 2019-08-23 09:40 | PM.CHAP ---
Addendum entered by Fortunato Guardado 08/24/19 11:35: Received email from [facility] briefcase sewer for pt's son, Josiah (corrected spelling) and passed her contact information on to pt. Rachell Gore can be contaced at [phone] or [email or web address] Addendum entered by Fortunato Guardado 08/23/19 10:15: Talked to sister, Emily, who was pleased to hear that Pt is safe. Sister is in contact with the owners of the [facility] where pt had been staying. She reported that they are open to his return but do not allow alcohol on the property. Original Note: Short visit with pt who was encouraged to be in a safe place and said he was ready to get back to recovery. Pt's family were good friends. Pt asked me to check on son, Cesia, and sister, Emily, who lives in [place]. Star Guardado [phone]
[2019-08-23] MEDS: ACETAMINOPHEN 325 MG TABLET 650 MG PO (12:38)
[2019-08-23] MEDS: cloNIDine 0.1 MG TABLET PO (12:39)
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
--- NOTE | 2019-08-23 13:49 | DI.MRI.S_ITS ---
PROCEDURE: MR HEAD/BRAIN WO/W CON INDICATIONS: r/o cerebellar degeneration TECHNIQUE: Noncontrast axial T1 spin echo, axial T2 fast spin echo, sagittal and axial FLAIR, coronal T2 fast spin echo, axial gradient echo, axial diffusion and ADC through the brain. After the administration of contrast, axial and coronal 3D VIBE or T1 spin echo with fat saturation through the brain. COMPARISON: None. FINDINGS: Image quality: Patient motion artifact on multiple sequences. Diagnostic image quality. CSF Spaces: Basal cisterns are patent. No extra-axial fluid collections. Ventricles are normal in size and shape. Brain: No midline shift. No intracranial bleeds or masses. No abnormal intracranial enhancement. The brainstem appears normal. Diffusion-weighted images demonstrate no acute ischemic insults. No chronic ischemic insults. Normal intravascular flow voids are present. Skull and face: Calvarial marrow is normal in signal. Orbits appear normal. Sinuses: Sinuses and mastoids appear clear. IMPRESSION: Unremarkable brain MRI. No evidence of acute stroke, hemorrhage, or mass. Dictated by: Constantine Graham M.D. on 08/23/2019 at 15:31 Approved by: Constantine Graham M.D. on 08/23/2019 at 15:50
--- NOTE | 2019-08-23 16:39 | PM.EVENT ---
Event Note Date Patient Seen: 08/23/19 Event Note: The patient is a 39-year-old male who was admitted to the hospital for alcohol withdrawal. He does report auditory hallucinations as well. He is tremulous, tachycardic, and minimally confused. Patient also complains of difficulty ambulating related to unsteady gait MRI of the brain was obtained to rule out a cerebellar process. MRI was negative. Patient will continue on Librium, IV hydration, and we will consult social work for possible inpatient rehabilitation stay
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
[2019-08-24] VITALS (12 sets, daily range): BP systolic 119–140; BP diastolic 70–88; PULSE 50–76; RESP 14–24; TEMP 36.1–37.2; O2SAT 96–99
[2019-08-24] MEDS: LORazepam 1 MG TABLET 2 MG PO ×4 (01:15→12:31)
[2019-08-24] MEDS: SODIUM CHLORIDE 0.9% 1,000 ML 125 ML IV (06:20)
[2019-08-24] MEDS: MULTIVITAMIN 1 TABLET 1 TAB PO (09:26)
[2019-08-24] MEDS: IBUPROFEN 600 MG TABLET PO (09:27)
[2019-08-24] MEDS: FOLIC ACID 1 MG TABLET PO (09:30)
[2019-08-24] MEDS: THIAMINE 100 MG TABLET PO (09:30)
[2019-08-24] MEDS: chlordiazePOXIDE 25 MG CAPSULE PO ×3 (09:30→20:54)
[2019-08-24] MEDS: SODIUM CHLORIDE 0.9% FLUSH 10 ML IV ×2 (12:30→22:29)
--- NOTE | 2019-08-24 13:03 | PM.PN.1 ---
Subjective Subjective Date Patient Seen: 08/24/19 Interval history: Patient is a 39-year-old male admitted to the hospital for alcohol dependence and withdrawal. He had auditory hallucinations and gait abnormalities. Patient reports he feels better. Has no significant hallucinations. He is somewhat weak and has required a walker to ambulate. He did have an MRI of the brain which was negative. Patient is awaiting evaluation for possible transfer to inpatient drug rehabilitation Exam Vital Signs (past 8 hours): - 08/24/19 07:00 08/24/19 08:00 08/24/19 09:13 Temperature 97.1 F L Pulse Rate 68 50 L Respiratory Rate 20 16 Blood Pressure 122/79 137/87 Pulse Oximetry 96 98 08/24/19 12:00 08/24/19 12:14 Temperature 99.0 F Pulse Rate 74 72 Respiratory Rate 17 18 Blood Pressure 140/88 137/87 Pulse Oximetry 99 96 Oxygen Delivery Method Room Air Oxygen Flow Rate 0 Narrative Exam Narrative: 39-year-old resting comfortably Lungs: Clear to auscultation Cardiac exam: Regular rate and rhythm normal S1-S2 Abdomen: Soft nontender nondistended Extremities: No edema, no tremor Objective Labs Result Diagrams: 08/23/19 04:37 08/23/19 04:37 Assessment & Plan Assessment & Plan narrative: 1. Alcohol dependence with alcohol withdrawal syndrome 2. Delirium tremors, improved 3. Auditory hallucinations likely related to substance abuse Plan will start Seroquel 100 mg at HS as recommended by Dr. ware Continue CIWA protocol Anticipate transfer to inpatient rehabilitation
--- NOTE | 2019-08-24 13:40 | CM.DPC ---
DCP Inpt CD Tx planning: Per , pt seems to be stable medically, MRI results came back negative, and RN plans to help pt to shower and ambulate today and pt not tremulous today. Pt medically cleared for Inpt treatment as of later today. Per Dr. 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 Patient still agreeable to voluntary Inpt CD treatment. SW called [facility] ([facility]) in [place] and confirmed they have openings but they do require a Substance Use Disorder (ODALIS) Assessment prior to acceptance and they cannot take an [place] assessment or the Psychiatrist Consult note as a replacement. LEIGH called [facility] and confirmed that pt is not currently established as a client at this time since he has not maintained contact or appointments the past two weeks and they do not have a current or updated ODALIS assessment that they can provide to [facility] and they do not do community assessments outside of their building, pt would have to arrive in person next week for the assessment. LEIGH called [facility] in [place] and spoke to Waylon ([phone]) and confirmed they are still contracted to provide community ODALIS assessments and he confirmed that he has a clinician, Mamie Uriarte, who can completed bedside ODALIS assessment with pt today at 1600 and then it will take a couple hours to complete the pwk and assessment prior to sending the information to [facility] to help coordinate his intake for likely tomorrow. Pt has confirmed that he is agreeable with SW updating his sister. Pt's sister Emily Stevens [phone] called and SW updated her on the assessment today and likely d/c to [facility] and she is very thankful and appreciative. SW updated and RN. Plan: SW to follow for introducing pt to [facility] Mamie boswell at 1600 for assessment and following for coordination between [facility] and [facility] to get pt into voluntary Inpt CD tx. STEFANO Land
[2019-08-24] MEDS: NICOTINE 14 PATCH 14 MG TOP (14:23)
[2019-08-24] MEDS: QUETIAPINE 25 MG TABLET 100 MG PO (20:54)
[2019-08-24] MEDS: ONDANSETRON 4 MG/2 ML INJ IV (22:37)
[2019-08-25 00:58] VITALS: BP 116/74; PULSE 98; RESP 20; TEMP 36.4; O2SAT 98
[2019-08-25 01:00] VITALS: O2SAT 98
[2019-08-25] MEDS: IBUPROFEN 600 MG TABLET PO (01:05)
[2019-08-25 04:15] VITALS: BP 122/79; PULSE 56; RESP 16; TEMP 36.4; O2SAT 100
[2019-08-25 08:00] VITALS: BP 115/76; PULSE 66; RESP 17; TEMP 36.2; O2SAT 99
[2019-08-25] MEDS: NICOTINE 14 PATCH 14 MG TOP (08:29)
[2019-08-25] MEDS: chlordiazePOXIDE 25 MG CAPSULE PO (08:29)
[2019-08-25] MEDS: FOLIC ACID 1 MG TABLET PO (08:29)
[2019-08-25] MEDS: MULTIVITAMIN 1 TABLET 1 TAB PO (08:29)
[2019-08-25] MEDS: THIAMINE 100 MG TABLET PO (08:29)
[2019-08-25] MEDS: SODIUM CHLORIDE 0.9% FLUSH 10 ML IV (08:30)
--- NOTE | 2019-08-25 08:36 | PM.CHAP ---
Addendum entered by Fortunato Guardado 08/25/19 09:47: Confirmed with [facility] that they would bring Pt's clothes to this afternoon. Jaspreet is supportive of Nelson's desire to get back on the road to recovery. Original Note: Very appreciative of work done on behalf of this pt. Please contact chaplains if any transportation or transition to in patient treatment needs arise. We have contacts through pt's hindu who are willing to help. Star Guardado [phone]
[2019-08-25 11:41] VITALS: BP 126/75; PULSE 85; RESP 16; TEMP 36.6; O2SAT 98
--- NOTE | 2019-08-25 14:21 | PC.NURSE ---
Addendum entered by Tin Wynn R.N. 08/25/19 14:59: Pt left at 1455 via w/c. Escorted to exit by TELEVISION AGENT in no distress with all belongings and Rx. Addendum entered by Tin Wynn R.N. 08/25/19 14:45: Reviewed d/c educational materials and medications with pt. Pt verbalizes understanding. Rx electronically sent to [facility] and picked up by FUEL CONVERSION TECHNICIAN to facilitate d/c. Transport here to pick pt up. Original Note: Pt has been AO x3 and cooperative with care. He is ambulating without assistive device and gait is slow but steady. He is hopeful to get some help with his alcoholism and substance abuse utilizing inpatient rehab. His CIWA score is 0. He denies pain, headache, hallucinations. His VSS. Plan is for inpatient rehab today. Coordinating with FUEL CONVERSION TECHNICIAN for d/c plan.
--- NOTE | 2019-08-25 16:04 | CM.DPNOTE ---
DC Note/Inpt ODALIS Treatment This AM; heard from Mamie Chapito at [facility] P# [phone]; she suggested , based on the time she spent w/ patient yesterday afternoon, that patient transition into a detox center like [facility] for additional detox and assist w/ w/d, before admission into the inpt setting- [facility]. Mamie based her conclusion on patient's recent h/o very heavy alcohol use and his affect during her interview at bedside. This [employer] suggested that patient was medically cleared and CIWA was now at 0, and patient would not require additional librium taper. Mamie placed call to [facility] and they said patient would not meet criteria for admission into their building because he had already gone through detox at [facility]. At that time, Mamie suggested she would complete her ODALIS assessment and would fax to [facility] for their review. Mamie hopeful they would accept for admission today, [facility] only does intake on Thursday-. This afternoon at approx 1330, heard from Mamie that [facility] had reviewed and accepted patient for admission today. This [employer] updated patient throughout the day and he remained open and agreeable to plan. Patient's friend had dropped off clothing and personal items, patient was provided w/ the what to bring/what not to bring list from [facility], and Rx for Seroquel was filled by [facility] w/assist from Dr Franklin and DALLAS Lange . [facility] does not have their own pharmacy and so patient needed Rx, no RN report needed. Mamie and her Transmission Tester provided transportation to [facility] at approx 1430. This [employer] then had lengthy conversation w/patient's sister Emily, w/pt's permission, updating on plan and provided supportive listening as Emily discussed how difficult it has been to watch patient's self destructive behavior and recent inability to follow through. Emily hopes she will be able to speak w/her brother at [facility] and/or receive updates. P: DC today to N/Inpatient ODALIS treatment center, transport provided by [facility] 28 day stay expected. STEFANO Dowell
--- NOTE | 2019-08-25 16:12 | P.DS_ITS ---
History of Present Illness History of Present Illness Date Patient Seen: 08/25/19 Chief complaint: ETOH withdrawal, unable to walk, hallucinations Narrative: Nelson Whitt is a 39-year-old male with multiple visits and 1 prior inpatient hospitalization who presents for alcohol withdrawal. He states that he has been drinking about 1 bottle of vodka daily. States that he has been hearing voices for over a year and they tell him to check out a foreign object in his ear. He was requesting an x-ray to see if there was something in his ears. The patient denies a history of psychiatric diagnoses or any family history of such including bipolar disorder or schizophrenia. Review of his prior chart indicated that on other occasions when he was seen in the emergency department for either alcohol or methamphetamine abuse, he was hallucinating during those times. The patient did state he has been through inpatient rehab once a few years ago. Per the ED for provider the patient was unable to walk and when he did try to walk he was holding on to anything on the periphery and walking with a very wide gait. Patient also indicated he had troubles walking and needed to balance himself against other objects or the jain to walk. The ED provider indicated to me that the patient was observing COVID-19 [id number] orders and apparently put on quite a bit a weight. Then he started to drink and lost much of the weight that he had previously gained. I was not able to observe his walking however in the ED was determined he was not safe to be able to walk or go home. Patient denies shortness of breath, chest pain, abdominal pain, he does endorse having diarrhea for about the last week and complaints of inability to walk as stated above. Discharge Providers Provider Date of admission: 08/23/19 00:50 Discharge Date: 08/25/19 Primary care physician: Luis Miguel Zheng MD Consults: 08/22/19 19:58 Consult to [facility] - Virtualization Consultant Stat Comment: 08/23/19 01:40 Consult to Physician Routine Comment: Consulting Provider: Jose Olivo Reason for consultation: ETOH withdrawal, recurrent hallucinations Has provider been notified: No Discharge provider: Caitlyn Franklin MD Summary Hospital Course Discharge Diagnosis: 1. Alcohol dependence and alcohol withdrawal 2. Acute encephalopathy secondary to delirium tremens 3. Auditory hallucinations secondary to substance abuse 4. Nicotine dependence and withdrawal Hospital Course: Patient was admitted to the hospital for acute alcohol withdrawal. He was placed on an alcohol withdrawal protocol to include Librium and Ativan. The patient complained of auditory hallucinations. Psychiatry consultation was obtained to determine whether this was a primary psychiatric illness verses result of his delirium tremens. Patient was placed on Seroquel at 100 mg at night. Patient's delirium tremens resolved. The patient did have some difficulty with ambulation initially. He underwent MRI of the brain to rule out cerebellar degeneration or any intracranial process. His brain MRI was negative. Patient recovered nicely without difficulty. We were able to find placement for him in [place] for acute drug rehabilitation. Patient was deemed appropriate for discharge and arrangements were made for him to be discharged and admitted to [place] acute drug rehabilitation. Status at Discharge Cognitive/behavioral status at discharge: oriented Functional status at discharge: independent ambulation Overall status at discharge: patient is back to baseline Time Spent with Patient Time spent: Less than 30 minutes Time spent discussing smoking cessation with patient: 3 to 10 minutes Exam Vital Signs (past 8 hours): - 08/25/19 11:41 Temperature 97.9 F Pulse Rate 85 Respiratory Rate 16 Blood Pressure 126/75 Pulse Oximetry 98 Oxygen Delivery Method Room Air Oxygen Flow Rate 0 Narrative Exam Narrative: 39-year-old male in no acute distress Lungs: Clear to auscultation Cardiac exam: Regular rate and rhythm normal S1-S2 Abdomen: Soft nontender nondistended Extremities: No edema Objective Labs Result Diagrams: 08/23/19 04:37 08/23/19 04:37 Discharge Plan Discharge Plan Patient Disposition: Home Discharge comment: discharged to [facility] Discharge orders & Medications Prescriptions: New quetiapine 25 mg Tablet 100 mg PO BEDTIME 30 Days RF: 0 quetiapine [Seroquel] 100 mg tablet 100 mg PO BEDTIME Qty: 30 RF: 0 Follow up/Referrals: Luis Miguel Zheng MD [Primary Care Provider] - Discharge Health Status Multidrug resistant organism: No MDRO Diet/Activity/Treatments Diet: Diet as Tolerated Activity: as tolerated Visit Report/Discharge Packet Instructions: Tips to Help You Stop Smoking, DI for Alcohol Abuse, Quetiapine Visit Report Forms: Patient Portal/API, Stroke Signs & Symptoms Discharge Data Primary Care Provider: Luis Miguel Zheng Discharges patient from system. Discharge Date/Time: 08/25/19 14:55
== END 2019-08-25 14:55 | disposition other institution (70) | DRG 775 ==
LOC: ED 19:58 → AC 08-23 00:51 → ICU 08-23 01:26
PROVIDERS: Admitting Provider Nurse Practitioner Family; Emergency Provider Emergency Medicine; PCP Family Medicine; Referring Provider Emergency Medicine; Visit Provider Nurse Practitioner Family
DX: F10.231 Alcohol dependence with withdrawal delirium (principal); F10.251 Alcohol dependence with alcohol-induced psychotic disorder with hallucinations; F15.19 Other stimulant abuse with unspecified stimulant-induced disorder; F17.210 Nicotine dependence, cigarettes, uncomplicated; R26.89 Other abnormalities of gait and mobility
CPT/HCPCS: 36415; 70553; 80053; 80076; 80305; 80320; 81003; 83690; 83735; 85025; 87797; 90792; 94760; 96361; 96374; 99284; A9579; J2060; J2405; J3475

== ENCOUNTER 2020-10-06 19:18 | Emergency (ER) | payer OTHER, MEDICAID, SELFPAY ==
[2019-08-23 01:26] VITALS: BMI 25.0
[2020-10-06] VITALS (20 sets, daily range): BP systolic 129–148; BP diastolic 68–88; PULSE 85–112; RESP 18–33; TEMP 36.7; O2SAT 92–95; BMI 27.1
[2020-10-06 19:54] LABS: Add Manual Diff / Slide Review NO; Basophils Absolute Auto 0 /uL (0-100); Basophils Percent Auto 0.5 % (0-2); Eosinophils Absolute Auto 100 /uL (0-450); Eosinophils Percent Auto 0.9 % (2-4); Hematocrit 41.9 % (41-53); Hemoglobin 14.2 g/dL (13.5-17.5); Lymphocytes Absolute Auto 2800 /uL (1100-4500); Lymphocytes Percent Auto 48.8 % (25-40); Mean Corpuscular HGB Conc 33.9 % (30-36); Mean Corpuscular Hemoglobin 32.3 PG (26-34); Mean Corpuscular Volume 95.3 fL (80-100); Monocytes Absolute Auto 400 /uL (0-900); Monocytes Percent Auto 7.5 % (3-14); Neutrophils Absolute Auto 2400 /uL (1500-7000); Neutrophils Percent Auto 42.3 % (50-75); Platelet Count 204 X10^3/uL (150-400); White Blood Cell Count 5.7 X10^3/uL (4.5-11.0)
[2020-10-06 20:11] LABS: Alanine Aminotransferase 27 IU/L (<50); Albumin Globulin Ratio 1.2 (1.0-2.8); Alkaline Phosphatase 144 U/L (38-126); Aspartate Aminotransferase 52 IU/L (17-59); BUN Creatinine Ratio 11.8 (6-22); Bilirubin Total 0.3 mg/dL (0.2-1.3); Blood Urea Nitrogen 11 mg/dL (9-20); Calcium 8.7 mg/dL (8.4-10.2); Carbon Dioxide 24 mmol/L (22-32); Chloride 103 mmol/L (98-107); Estimated Glomerular Filt Rate > 60.0 mL/min (>60); Globulin 3.3 g/dL (1.7-4.1); Glucose 158 mg/dL (70-100); HEMOLYSIS 21 (0-50); Lipase 180 U/L (23-300); Potassium 3.8 mmol/L (3.4-5.1); Sodium 138 mmol/L (137-145); Total Protein 7.3 g/dL (6.3-8.2)
--- NOTE | 2020-10-06 20:11 | PC.NURSE ---
Sister Emily called for update. Pt verbalized ok to give sister medical information w/o limitations. Sister states pt is supposed to be going to [facility] on Thursday for voluntary detox / rehab. Linda Zavala of [facility] is driving him. Linda also assisted in getting pt his medications after he got [facility]. Her contact # is [phone]. Sister asks if Linda can be notified if pt is going to be discharged to see if he could go to rehab sooner than Thursday. I explained that pt was voluntary currently.
[2020-10-06 20:29] LABS: Ur Creatinine Normal (Normal); Ur Specific Gravity Normal (Normal); Urine pH Normal (Normal)
[2020-10-06 20:30] LABS: Ethanol (ETOH) 41 mg/dL
[2020-10-06 20:30] LABS: UR Morphine/Opiate cutoff 300 Positive (Negative); Urine Amphetamines Positive (Negative); Urine Barbiturates Negative (Negative); Urine Benzodiazepines Negative (Negative); Urine Cocaine Negative (Negative); Urine MDMA Negative (Negative); Urine Methadone Negative (Negative); Urine Methamphetamines Positive (Negative); Urine Oxycodone Negative (Negative); Urine Phencyclidine Negative (Negative); Urine Tetrahydrocannabinol Positive (Negative); Urine Tricyclic Antidepressant Positive (Negative)
[2020-10-06 20:32] LABS: COVID19 - ADMIT (NP swab/PCR) Negative (Negative)
[2020-10-07] VITALS (18 sets, daily range): BP systolic 129–151; BP diastolic 64–80; PULSE 83–117; RESP 16; TEMP 37.2; O2SAT 92–97
--- NOTE | 2020-10-07 00:35 | ED_ITS ---
HPI - Overdose <Bria Gonzales MD - Last Filed: 10/11/20 20:26> General Chief Complaint: Unresponsive Stated Complaint: CPR/OD Time Seen by Provider: 10/06/20 19:26 Source: patient and EMS Mode of arrival: EMS History of Present Illness HPI Narrative: With history of alcohol use disorder who is planning on going to inpatient treatment in 2 days presents with an accidental respiratory arrest after use of smoked heroin. Report came in of the CPR being done. When medics arrived on scene they found the patient to be apneic with a pulse present. He was initially given nasal Narcan with minimal response. He was given another 2 mg of IM Narcan and will nicely on by the time he arrived in the emergency depar tment was awake and able to participate in exam and questioning. He had minimal recollection of how he ended up in the emergency department. Related Data Home Medications Medication Instructions Recorded Confirmed aripiprazole 10 mg tablet 10 mg PO BEDTIME 10/06/20 10/07/20 clonidine HCl 0.1 mg tablet 0.1 mg PO BEDTIME 10/06/20 10/07/20 sertraline 25 mg tablet 25 mg PO QAM 10/06/20 10/06/20 Previous Rx's Medication Instructions Recorded quetiapine 100 mg tablet (Seroquel) 100 mg PO BEDTIME #30 tab 08/25/19 lorazepam 1 mg tablet (Ativan) 1 mg PO BEDTIME PRN #10 tab 10/07/20 lorazepam 1 mg tablet (Ativan) 1 mg PO BID PRN #16 tab 10/07/20 naloxone 4 mg/actuation nasal 4 mg INTRANASAL Q2M PRN #2 ea 10/07/20 spray (Narcan) Allergies Allergy/AdvReac Type Severity Reaction Status Date / Time No Known Drug Allergies Allergy Verified 10/06/20 20:08 Review of Systems <Bria Gonzales MD - Last Filed: 10/11/20 20:26> Review of Systems ROS Unobtainable: Unobtainable due to medical condition Patient History <Bria Gonzales MD - Last Filed: 10/11/20 20:26> Medical History (Updated 10/08/20 @ 05:02 by Bria Gonzales MD) Alcohol intoxication Alcohol use disorder Alcohol withdrawal delirium, acute, mixed level of activity Family History Father Fire accident Mother Cancer Social History household members: none Smoking Status: Smoker, status unknown alcohol intake: current substance use type: methamphetamine Smoking Status: Smoker, status unknown alcohol intake frequency: 3 or more drinks per day Substance Use Type: marijuana Exam <Bria Gonzales MD - Last Filed: 10/11/20 20:26> Narrative Exam Narrative: General: Somnolent but maintaining airway and in no acute distress. Able to participate with history. Well-nourished well-developed HEENT: Moist mucous membranes, normal sclera with reactive pupils, Respiratory: Lungs are clear to auscultation, no wheezing no rales no rhonchi. Full and symmetrical air movement Cardiac: Regular rate and rhythm no murmurs no bruits Abdomen: Soft, nontender, good bowel tones, no flank pain Skin: Warm and dry, no rashes Neurologic: Grossly neurologically intact with no obvious asymmetries or abnormalities Extremities: No trauma, well perfused. Has a a blister over his right ankle that has ruptured and is irritated but not acutely infected Psych: Cooperative, still slightly confused as to the events of this evening Initial Vital Signs Initial Vital Signs: Vital Signs Temperature 98.0 F 10/06/20 19:24 Pulse Rate 97 H 10/06/20 19:24 Respiratory Rate 18 10/06/20 19:24 Blood Pressure 144/87 H 10/06/20 19:24 Pulse Oximetry 95 10/06/20 19:24 <Luis Miguel Swift DO - Last Filed: 10/07/20 13:36> Initial Vital Signs Initial Vital Signs: Vital Signs Temperature 98.0 F 10/06/20 19:24 Pulse Rate 97 H 10/06/20 19:24 Respiratory Rate 18 10/06/20 19:24 Blood Pressure 144/87 H 10/06/20 19:24 Pulse Oximetry 95 10/06/20 19:24 Course <Bria Gonzales MD - Last Filed: 10/11/20 20:26> Orders Ordered: Discontinued Medications Bacitracin (Bacitracin Oint 0.9 Gm Pckt) 1 applic TOP NOW ONE Stop: 10/07/20 00:34 Last Admin: 10/07/20 01:19 Dose: 1 applic Documented by: ALEJANDRA Thiamine HCl 100 mg/ Sodium (Chloride) 101 mls @ 404 mls/hr IV NOW ONE Stop: 10/07/20 00:34 Last Infusion: 10/07/20 01:45 Dose: 0 mls/hr Documented by: Admin: 10/07/20 01:19 Dose: 404 mls/hr Documented by: ALEJANDRA Sodium Chloride (Normal Saline 0.9%) 1,000 mls @ 1,000 mls/hr IV BOLUS ONE Stop: 10/07/20 01:33 Last Infusion: 10/07/20 02:43 Dose: 0 mls/hr Documented by: Admin: 10/07/20 01:19 Dose: 1,000 mls/hr Documented by: ALEJANDRA Lorazepam (Lorazepam 0.5 Mg Tablet) 2 mg PO NOW ONE Stop: 10/07/20 22:20 Last Admin: 10/07/20 22:25 Dose: 2 mg Documented by: ALEJANDRA Vital Signs Vital signs: Vital Signs - 8 hr 10/07/20 06:42 Temperature 99.0 F Pulse Rate 84 Respiratory Rate 16 Blood Pressure 135/67 Pulse Oximetry 97 <Luis Miguel Swift DO - Last Filed: 10/07/20 13:36> Orders Ordered: Discontinued Medications Bacitracin (Bacitracin Oint 0.9 Gm Pckt) 1 applic TOP NOW ONE Stop: 10/07/20 00:34 Last Admin: 10/07/20 01:19 Dose: 1 applic Documented by: ALEJANDRA Thiamine HCl 100 mg/ Sodium (Chloride) 101 mls @ 404 mls/hr IV NOW ONE Stop: 10/07/20 00:34 Last Infusion: 10/07/20 01:45 Dose: 0 mls/hr Documented by: Admin: 10/07/20 01:19 Dose: 404 mls/hr Documented by: ALEJANDRA Sodium Chloride (Normal Saline 0.9%) 1,000 mls @ 1,000 mls/hr IV BOLUS ONE Stop: 10/07/20 01:33 Last Infusion: 10/07/20 02:43 Dose: 0 mls/hr Documented by: Admin: 07/18/21 01:19 Dose: 1,000 mls/hr Documented by: ALEJANDRA Lorazepam (Lorazepam 0.5 Mg Tablet) 2 mg PO NOW ONE Stop: 10/07/20 22:20 Last Admin: 10/07/20 22:25 Dose: 2 mg Documented by: ALEJANDRA Vital Signs Vital signs: Vital Signs - 8 hr 10/07/20 06:42 Temperature 99.0 F Pulse Rate 84 Respiratory Rate 16 Blood Pressure 135/67 Pulse Oximetry 97 MDM - Overdose <Bria Gonzales MD - Last Filed: 10/11/20 20:26> Lab Data Result diagrams: 10/06/20 19:45 10/06/20 19:45 Labs: Lab Results 10/06/20 10/06/20 10/06/20 Range/Units 19:29 19:45 19:45 WBC 5.7 (4.5-11.0) X10^3/uL RBC 4.40 L (4.5-5.9) X10^6/uL Hgb 14.2 (13.5-17.5) g/dL Hct 41.9 (41-53) % MCV 95.3 (80-100) fL MCH 32.3 (26-34) PG MCHC 33.9 (30-36) % RDW 13.0 (11.6-14.8) % Plt Count 204 (150-400) X10^3/uL Neut % (Auto) 42.3 L (50-75) % Lymph % (Auto) 48.8 H (25-40) % [place] % (Auto) 7.5 (3-14) % Eos % (Auto) 0.9 L (2-4) % Baso % (Auto) 0.5 (0-2) % Neut # (Auto) 2400 (6548-0555) /uL Lymph # (Auto) 2800 (9979-6462) /uL [place] # (Auto) 400 (0-900) /uL Eos # (Auto) 100 (0-450) /uL Baso # (Auto) 0 (0-100) /uL Sodium 138 (137-145) mmol/L Potassium 3.8 (3.4-5.1) mmol/L Chloride 103 (98-107) mmol/L Carbon Dioxide 24 (22-32) mmol/L BUN 11 (9-20) mg/dL Creatinine 0.93 (0.66-1.25) mg/dL Estimated GFR > 60.0 (>60) mL/min BUN/Creatinine Ratio 11.8 (6-22) Glucose 158 H (70-100) mg/dL Calcium 8.7 (8.4-10.2) mg/dL Total Bilirubin 0.3 (0.2-1.3) mg/dL AST 52 (17-59) IU/L ALT 27 (<50) IU/L Alkaline Phosphatase 144 H (38-126) U/L Total Protein 7.3 (6.3-8.2) g/dL Albumin 4.0 (3.5-5.0) g/dL Globulin 3.3 (1.7-4.1) g/dL Albumin/Globulin Ratio 1.2 (1.0-2.8) Lipase 180 (23-300) U/L U Opiates 300ng/mL cut (Negative) Ur Oxycodone Screen (Negative) Urine Methadone Screen (Negative) Ur Barbiturates Screen (Negative) U Tricyclic Antidepress (Negative) Ur Phencyclidine Scrn (Negative) Ur Amphetamines Screen (Negative) U Methamphetamines Scrn (Negative) Ur MDMA Scrn (Ecstasy) (Negative) U Benzodiazepines Scrn (Negative) Urine Cocaine Screen (Negative) U Marijuana (THC) Screen (Negative) Ethyl Alcohol ( - 10) mg/dL SARS-CoV-2 (PCR) Negative (Negative) 10/06/20 10/06/20 Range/Units 19:45 20:18 WBC (4.5-11.0) X10^3/uL RBC (4.5-5.9) X10^6/uL Hgb (13.5-17.5) g/dL Hct (41-53) % MCV (80-100) fL MCH (26-34) PG MCHC (30-36) % RDW (11.6-14.8) % Plt Count (150-400) X10^3/uL Neut % (Auto) (50-75) % Lymph % (Auto) (25-40) % [place] % (Auto) (3-14) % Eos % (Auto) (2-4) % Baso % (Auto) (0-2) % Neut # (Auto) (9343-0228) /uL Lymph # (Auto) (2395-6529) /uL [place] # (Auto) (0-900) /uL Eos # (Auto) (0-450) /uL Baso # (Auto) (0-100) /uL Sodium (137-145) mmol/L Potassium (3.4-5.1) mmol/L Chloride (98-107) mmol/L Carbon Dioxide (22-32) mmol/L BUN (9-20) mg/dL Creatinine (0.66-1.25) mg/dL Estimated GFR (>60) mL/min BUN/Creatinine Ratio (6-22) Glucose (70-100) mg/dL Calcium (8.4-10.2) mg/dL Total Bilirubin (0.2-1.3) mg/dL AST (17-59) IU/L ALT (<50) IU/L Alkaline Phosphatase (38-126) U/L Total Protein (6.3-8.2) g/dL Albumin (3.5-5.0) g/dL Globulin (1.7-4.1) g/dL Albumin/Globulin Ratio (1.0-2.8) Lipase (23-300) U/L U Opiates 300ng/mL cut Positive H (Negative) Ur Oxycodone Screen Negative (Negative) Urine Methadone Screen Negative (Negative) Ur Barbiturates Screen Negative (Negative) U Tricyclic Antidepress Positive H (Negative) Ur Phencyclidine Scrn Negative (Negative) Ur Amphetamines Screen Positive H (Negative) U Methamphetamines Scrn Positive H (Negative) Ur MDMA Scrn (Ecstasy) Negative (Negative) U Benzodiazepines Scrn Negative (Negative) Urine Cocaine Screen Negative (Negative) U Marijuana (THC) Screen Positive H (Negative) Ethyl Alcohol 41 H ( - 10) mg/dL SARS-CoV-2 (PCR) (Negative) Urine Dip Bedside Urine Glucose Negative Bedside Urine Bilirubin - Negative Bedside Urine Ketone - Negative Urine Specific Dodson 1.030 Bedside Urine Occult Blood - Negative Bedside Urine pH 6 Bedside Urine Protein +/- 15 Bedside Urine Urobilinogen - Negative Bedside Urine Nitrite - Negative Bedside Urine Leukocytes - Negative Esterase MDM Narrative Medical decision making narrative: 40-year-old gentleman with a history primarily of alcohol use disorder but also some issues with smoked heroin as well as methamphetamine presents after having a primary respiratory arrest from heroin. He was given intranasal Narcan and IM Narcan and responded nicely. On arrival in the emergency department he is awake and able to respond to questions. After observation in the emergency department for 6 hours he continues to do well without any respiratory depression need for oxygen supplementation. He states that he has an inpatient bed scheduled for Thursday. He currently does not have a place to live and is interested in detox until he is able to get to his inpatient bed. He notes that he recently had medications refilled and they were in a bag that he had with him this afternoon. Will contact medics to see if they can confirm where they picked this gentleman up to see if his backpack can be located. Alcohol level on arrival is 41 and he is minimally symptomatic from alcohol withdrawal. Will see if male detox beds are available and have him screen for detox until he is able to get to his inpatient bed. Detox beds are available after 6:00 a.m. this morning. He does need to have at least 2 mg of Ativan with him due to his history of seizing when withdrawing from alcohol. He also needs to have his psychiatric medications with him. At this time we do not have a way to help him get his backpack with his psychiatric medications. He is not showing significant signs of alcohol withdrawal despite alcohol level being quite low and certainly no seizure-like activity. He is boarding currently in the emergency department and will re-evaluate later this morning to see if he still interested in pursuing going to detox. Will see if we are able to help get his backpack with his belongings and medications and can certainly help with Ativan prescriptions for withdrawal precaution. He will also be given a prescription for intranasal Narcan 630am 10/07/20 patient has slept well overnight. When re-evaluated this morning he is not having significant signs of alcohol withdrawal despite no alcohol last night and an alcohol level of only 44 when he was initially brought in. When presented with options he still remains very committed to the idea of inpatient treatment on Thursday and states that he has an intake appointment at [facility] and Linda, the transition counselor from the shelter, is planning on picking him up to get him to [facility]. When asked if he was still interested in detox he stated that he was. He thinks that Linda may be able to help him get his backpack with prescription medications and help him get to detox this morning however she will begin to answer her phone until 8:00 a.m.. May need to rediscuss care with detox to make sure that he still has an available bed. At this point with minimal signs of alcohol withdrawal I am not sure that it is so important to have immediate Ativan on hand. We certainly could be give him a 2 mg dose prior to discharge if either the patient or detox off that was appropriate. I do have a Ativan taper prescription available to him should he wish to fill it as well as intranasal Narcan prescription. Dr swift: Patient was seen by social work today. We were able to set him up with detox facility and [place]. He will be discharged. Patient is stable. 5:00 10/08 Patient has had a quiet evening. He did request a single dose of Ativan last night for alcohol cravings without a significantly elevated CIWA score. He s lept well. 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 this morning to be transported to [facility] for inpatient drug and alcohol treatment. <Luis Miguel Swift, - Last Filed: 10/07/20 13:36> Lab Data Labs: Lab Results 10/06/20 10/06/20 10/06/20 Range/Units 19:29 19:45 19:45 WBC 5.7 (4.5-11.0) X10^3/uL RBC 4.40 L (4.5-5.9) X10^6/uL Hgb 14.2 (13.5-17.5) g/dL Hct 41.9 (41-53) % MCV 95.3 (80-100) fL MCH 32.3 (26-34) PG MCHC 33.9 (30-36) % RDW 13.0 (11.6-14.8) % Plt Count 204 (150-400) X10^3/uL Neut % (Auto) 42.3 L (50-75) % Lymph % (Auto) 48.8 H (25-40) % [place] % (Auto) 7.5 (3-14) % Eos % (Auto) 0.9 L (2-4) % Baso % (Auto) 0.5 (0-2) % Neut # (Auto) 2400 (6965-9650) /uL Lymph # (Auto) 2800 (8083-1165) /uL [place] # (Auto) 400 (0-900) /uL Eos # (Auto) 100 (0-450) /uL Baso # (Auto) 0 (0-100) /uL Sodium 138 (137-145) mmol/L Potassium 3.8 (3.4-5.1) mmol/L Chloride 103 (98-107) mmol/L Carbon Dioxide 24 (22-32) mmol/L BUN 11 (9-20) mg/dL Creatinine 0.93 (0.66-1.25) mg/dL Estimated GFR > 60.0 (>60) mL/min BUN/Creatinine Ratio 11.8 (6-22) Glucose 158 H (70-100) mg/dL Calcium 8.7 (8.4-10.2) mg/dL Total Bilirubin 0.3 (0.2-1.3) mg/dL AST 52 (17-59) IU/L ALT 27 (<50) IU/L Alkaline Phosphatase 144 H (38-126) U/L Total Protein 7.3 (6.3-8.2) g/dL Albumin 4.0 (3.5-5.0) g/dL Globulin 3.3 (1.7-4.1) g/dL Albumin/Globulin Ratio 1.2 (1.0-2.8) Lipase 180 (23-300) U/L U Opiates 300ng/mL cut (Negative) Ur Oxycodone Screen (Negative) Urine Methadone Screen (Negative) Ur Barbiturates Screen (Negative) U Tricyclic Antidepress (Negative) Ur Phencyclidine Scrn (Negative) Ur Amphetamines Screen (Negative) U Methamphetamines Scrn (Negative) Ur MDMA Scrn (Ecstasy) (Negative) U Benzodiazepines Scrn (Negative) Urine Cocaine Screen (Negative) U Marijuana (THC) Screen (Negative) Ethyl Alcohol ( - 10) mg/dL SARS-CoV-2 (PCR) Negative (Negative) 10/06/20 10/06/20 Range/Units 19:45 20:18 WBC (4.5-11.0) X10^3/uL RBC (4.5-5.9) X10^6/uL Hgb (13.5-17.5) g/dL Hct (41-53) % MCV (80-100) fL MCH (26-34) PG MCHC (30-36) % RDW (11.6-14.8) % Plt Count (150-400) X10^3/uL Neut % (Auto) (50-75) % Lymph % (Auto) (25-40) % [place] % (Auto) (3-14) % Eos % (Auto) (2-4) % Baso % (Auto) (0-2) % Neut # (Auto) (4916-8605) /uL Lymph # (Auto) (1514-5531) /uL [place] # (Auto) (0-900) /uL Eos # (Auto) (0-450) /uL Baso # (Auto) (0-100) /uL Sodium (137-145) mmol/L Potassium (3.4-5.1) mmol/L Chloride (98-107) mmol/L Carbon Dioxide (22-32) mmol/L BUN (9-20) mg/dL Creatinine (0.66-1.25) mg/dL Estimated GFR (>60) mL/min BUN/Creatinine Ratio (6-22) Glucose (70-100) mg/dL Calcium (8.4-10.2) mg/dL Total Bilirubin (0.2-1.3) mg/dL AST (17-59) IU/L ALT (<50) IU/L Alkaline Phosphatase (38-126) U/L Total Protein (6.3-8.2) g/dL Albumin (3.5-5.0) g/dL Globulin (1.7-4.1) g/dL Albumin/Globulin Ratio (1.0-2.8) Lipase (23-300) U/L U Opiates 300ng/mL cut Positive H (Negative) Ur Oxycodone Screen Negative (Negative) Urine Methadone Screen Negative (Negative) Ur Barbiturates Screen Negative (Negative) U Tricyclic Antidepress Positive H (Negative) Ur Phencyclidine Scrn Negative (Negative) Ur Amphetamines Screen Positive H (Negative) U Methamphetamines Scrn Positive H (Negative) Ur MDMA Scrn (Ecstasy) Negative (Negative) U Benzodiazepines Scrn Negative (Negative) Urine Cocaine Screen Negative (Negative) U Marijuana (THC) Screen Positive H (Negative) Ethyl Alcohol 41 H ( - 10) mg/dL SARS-CoV-2 (PCR) (Negative) Urine Dip Bedside Urine Glucose Negative Bedside Urine Bilirubin - Negative Bedside Urine Ketone - Negative Urine Specific Dodson 1.030 Bedside Urine Occult Blood - Negative Bedside Urine pH 6 Bedside Urine Protein +/- 15 Bedside Urine Urobilinogen - Negative Bedside Urine Nitrite - Negative Bedside Urine Leukocytes - Negative Esterase MDM Narrative Medical decision making narrative: 40-year-old gentleman with a history primarily of alcohol use disorder but also some issues with smoked heroin as well as methamphetamine presents after having a primary respiratory arrest from heroin. He was given intranasal Narcan and IM Narcan and responded nicely. On arrival in the emergency department he is awake and able to respond to questi ons. After observation in the emergency department for 6 hours he continues to do well without any respiratory depression need for oxygen supplementation. He states that he has an inpatient bed scheduled for Thursday. He currently does not have a place to live and is interested in detox until he is able to get to his inpatient bed. He notes that he recently had medications refilled and they were in a bag that he had with him this afternoon. Will contact medics to see if they can confirm where they picked this gentleman up to see if his backpack can be located. Alcohol level on arrival is 41 and he is minimally symptomatic from alcohol withdrawal. Will see if male detox beds are available and have him screen for detox until he is able to get to his inpatient bed. Detox beds are available after 6:00 a.m. this morning. He does need to have at least 2 mg of Ativan with him due to his history of seizing when withdrawing from alcohol. He also needs to have his psychiatric medications with him. At this time we do not have a way to help him get his backpack with his psychiatric medications. He is not showing significant signs of alcohol withdrawal despite alcohol level being quite low and certainly no seizure-like activity. He is boarding currently in the emergency department and will re-evaluate later this morning to see if he still interested in pursuing going to detox. Will see if we are able to help get his backpack with his belongings and medications and can certainly help with Ativan prescriptions for withdrawal precaution. He will also be given a prescription for intranasal Narcan 630am 10/07/20 patient has slept well overnight. When re-evaluated this mor ankur he is not having significant signs of alcohol withdrawal despite no alcohol last night and an alcohol level of only 44 when he was initially brought in. When presented with options he still remains very committed to the idea of inpatient treatment on Thursday and states that he has an intake appointment at [facility] and Linda, the transition counselor from the shelter, is planning on picking him up to get him to [facility]. When asked if he was still interested in detox he stated that he was. He thinks that Linda may be able to help him get his backpack with prescription medications and help him get to detox this morning however she will begin to answer her phone until 8:00 a.m.. May need to rediscuss care with detox to make sure that he still has an available bed. At this point with minimal signs of alcohol withdrawal I am not sure that it is so important to have immediate Ativan on hand. We certainly could be give him a 2 mg dose prior to discharge if either the patient or detox off that was appropriate. I do have a Ativan taper prescription available to him should he wish to fill it as well as intranasal Narcan prescription. Dr swift: Patient was seen by social work today. We were able to set him up with detox facility and [place]. He will be discharged. Patient is stable. Discharge Plan Departure Patient Disposition: Home Clinical Impression: Alcohol use disorder Narcotic overdose Qualifiers: Encounter type: initial encounter Injury intent: accidental or unintentional Qualified Code(s): T40.601A - Poisoning by unspecified narcotics, accidental (unintentional), initial encounter Instructions: DI for Opioid Use Disorder, DI for Drug or Alcohol Withdrawal Activity Restrictions/Additional Instructions: You almost on Thursday night because of a heroin overdose Were not able to help you get to [facility] over the weekend and you remained safe and boarding in the emergency department. Over the 48 hour emergency department stay you have had minimal alcohol withdrawal symptoms and seemed to be doing very well otherwise. You will be taken to [facility] for your scheduled inpatient treatment on Thursday. I wish you the best in your continued recovery Prescriptions: New lorazepam [Ativan] 1 mg tablet 1 mg PO BID PRN (Reason: alcohol withdrawal) Qty: 16 RF: 0 lorazepam [Ativan] 1 mg tablet 1 mg PO BEDTIME PRN (Reason: alcohol withdrawal) Qty: 10 RF: 0 Narcan 4 mg/actuation spray,non-aerosol 4 mg intranasal Q2M PRN (Reason: opioid overdose) Qty: 2 RF: 0 No Action quetiapine [Seroquel] 100 mg tablet 100 mg PO BEDTIME Qty: 30 RF: 0 clonidine HCl 0.1 mg tablet 0.1 mg PO BEDTIME RF: 0 sertraline 25 mg tablet 25 mg PO QAM RF: 0 aripiprazole 10 mg tablet 10 mg PO BEDTIME RF: 0
[2020-10-07] MEDS: SODIUM CHLORIDE 0.9% 1,000 ML 1000 ML IV (01:19)
[2020-10-07] MEDS: BACITRACIN OINT 0.9 GM PCKT 1 APPLIC TOP (01:19)
[2020-10-07] MEDS: THIAMINE 100 MG in SODIUM CHLORIDE 0.9% 100 ML 404 ML IV (01:19)
--- NOTE | 2020-10-07 06:53 | PC.NURSE ---
Janette at [facility] stated that the patient is accepted, but he would need a prescription for ativan, as well as his routine psych medications. Pt stated that his meds are in a backpack at the house where medics picked him up, 1801. Janette stated pt could arrive after 0600. This morning, pt has not required any ativan for alcohol withdrawal symptoms. CIWA 2 for mild situational anxiety. Pt states his transition counselor, Linda, is planning to take him to [facility] for detox on Thursday, but perhaps she would be able to take him to [facility] this morning. She will not be available by phone until after 0800. I attempted to phone [facility] to update them, but there was no answer.
--- NOTE | 2020-10-07 13:53 | CM.SWNOTE ---
PLUMBING SERVICE TECHNICIAN Assessment PLUMBING SERVICE TECHNICIAN - Negative Notcher Assessment PLUMBING SERVICE TECHNICIAN/Negative Notcher Assessment Time Spent with Patient Start date 10/07/20 Visit Start Time 12:30 End date 10/07/20 Visit End Time 13:30 Total time Care Management spent on 1 hour patient visit-in minutes Substance Abuse Screening Include Onset, Duration, Intensity Presenting Problem Patient presents to this ED via EMS after heroin and ETOH use. Patient was unresponsive and required narcan and CPR. Precipitating Event(s) Patient endorses he is homeless and stressed, and has a bed date on 10/08/20 at [facility] in [place]. Patient endorses taking Seroquil in the morning prior to substance use. Patient Strengths Patient is wanting to access treatment and go to [facility] Current Behavioral Health Provider(s) Patient has counselor Linda Include Facility, Provider, Ph. # with [facility] (Ph. # [phone]) Family Hx of Behavioral Abuse Patient's sister reports that patient has hx of childhood trauma and was in foster care. Rehab Facilities? ((Date(s), Location(s) Patient endorses hx of ) graduating from [facility] at [facility] in April 2020. History of Withdrawal? Seizures? Patient has hx of tremors and seizures and reports no current withdrawal symptoms. Longest Period of Sobriety None reported, patient endorses daily drinking. Psychosocial information & Support Patient is 40 y/o male who is Systems currently homeless in [facility]. Patient reports having friends but not relatives close by. Patient's sister lives in [place] School/Work None reported Legal Concerns Legal Matters - Outstanding Issues Patient endorses court date for DUI in November 2020 Mental Status Orientation (Person/Place/Time) A/Ox3 Stated Mood ok Affect (Congruent with Mood?) Euthymic, full range, congruent with mood Thought Content - Specify/Describe Patient does not endorse Obsessions, Delusions, Hallucinations obsessions, delusions or hallucinations. Thought Processes (Gnsvkvu-Dcphrepk-Bpky goal oriented Rhccbgnp-Ytxuotdb-Wtrrneszrx- Zqgjzadndeyxsu-Tftddej-Mfllidzkimtg- Thought Blocking) Speech (Wqpoun-Hrce-Gawldji-Rapid-Soft- slow/normal Loud-Pressured) Motor (Gdqjhr-Nbtzdimzp-Bjfx-Other) slow/normal Insight (Dxfh-Ymeb-Imgs/Limited) fair/limited Judgement (Lheg-Mnza-Qfsw/Limited) poor/limited Impulse Control (Adequate-Impaired) adequate Memory (Keksizfen-Mtdthd-Yxhjrl, intact Impaired-Intact) Concentration (Intact-Impaired) intact Attention (Intact-Impaired) intact Behavior (Appropriate-Inappropriate) Appopriate Risk Assessment Suicidal Ideation (Plan) No Homicidal Ideation (Plan) No Comment Patient denies HI and SI Intervention Intervention PLUMBING SERVICE TECHNICIAN meets with patient. Patient endorses that he drank a few beers and smoked heroin yesterday. Patient endorses he has no memory of last evening and how he arrived to this hospital. Patient endorses that he took sertoline in the morning yesterday and was possibly dehydrated and malnourished. Patient endorses he has a bed date at [facility] in [place], [place] on Thursday10/08/20. Patient endorses that he is going for treatment in regards to his ETOH use and endorses he drinks 3-4 tall boys or a 1/5 of alcohol daily since he was 18 y/o. Patient states he would prefer to stay at this ED until bed date tomorrow at [facility]. PLUMBING SERVICE TECHNICIAN discusses detox and informs patient of open detox bed at [facility] in [place]. Patient conducts intake screen and will be admitted at facility. It is the opinion of this PLUMBING SERVICE TECHNICIAN that patient is appropriate for detox prior to bed date at [facility] for safe stabilization. PLUMBING SERVICE TECHNICIAN reviews the above with ED provider Dr. Swift who indicates agreement and understanding. Plan RA Plan Patient to d/c to detox in [place] and to follow through with bed date at [facility]. STEFANO Sotelo
--- NOTE | 2020-10-07 13:54 | CM.SWNOTE ---
Addendum entered by Jessica Olson 10/07/20 14:31: CERTIFIED PESTICIDE APPLICATOR calls [facility] at [facility], it is reported that they are understaffed and unable to take patient. CERTIFIED PESTICIDE APPLICATOR calls [facility] in [place], it is reported that patient needs to arrive by 1600 or patient will have to wait until tomorrow. [facility] is not able to identify Aubrey, Medicaid taxi, cabulance or BLS for patient. CERTIFIED PESTICIDE APPLICATOR reviews this with patient and patient reports concern for being d/c to street. CERTIFIED PESTICIDE APPLICATOR reviews the above with ED provider Dr. Swift. CERTIFIED PESTICIDE APPLICATOR speaks with Linda transition counselor, she reports she can pick patient up at 830 am for his bed date. It is the decision of ED provider Dr. Swift that patient remain at this ED until 830 -900 am tomorrow for his [facility] bed date and transportation via counselor Linda. CERTIFIED PESTICIDE APPLICATOR calls Linda and reviews the above with her and she appreciates safe stable environment for patient due to no access for detox today for patient. Plan: patient to stay in this ED until tomorrow morning for transport to [facility] inpatient bed date on Thursday10/08/20 STEFANO Sotelo Original Note: CERTIFIED PESTICIDE APPLICATOR Note CERTIFIED PESTICIDE APPLICATOR calls Wyatt, patient's friend and resident of where patient's belongings are located and leaves requesting return call. CERTIFIED PESTICIDE APPLICATOR calls patient's sister Emily regarding assisting patient in accessing his belongings with rx. Patient's sister endorses that she spoke with Wyatt last evening and he said that he would bring patient's backpack to hospital with belongings. Patient's sister endorses worry about patient's presence at ED and states that he was offered detox on Thursday by Linda his transition counselor but he declined because he wanted to alliance party before bed date. Patient's sister indicates she will contact Wyatt to request that he brings patient's belongings. CERTIFIED PESTICIDE APPLICATOR calls patient's transition counselor Linda (ph. #[phone]) and leaves with current information regarding patient. ED staff arranging taxi transportation to take patient to [facility] detox transportation for patient by 1600 STEFANO Sotelo
--- NOTE | 2020-10-07 21:09 | PC.NURSE ---
Sawyer WEAVER witnessed this writter get home night time medications out of patient belongings locked in ER cabinet. Patient provided with night time meds, water and milk.
--- NOTE | 2020-10-07 22:20 | PC.NURSE ---
Pt asking for ativan for cravings. Dr Gonzales notified, orders received.
[2020-10-07] MEDS: LORazepam 0.5 MG TABLET 2 MG PO (22:25)
--- NOTE | 2020-10-08 08:05 | PC.NURSE ---
provided pt with breakfast
[2020-10-08 08:39] VITALS: BP 133/79; O2SAT 89
== END 2020-10-08 08:45 | disposition home or self-care (01) ==
PROVIDERS: Emergency Medicine; Emergency Provider Emergency Medicine
DX: T40.601A Poisoning by unspecified narcotics, accidental (unintentional), initial encounter (principal); F10.29 Alcohol dependence with unspecified alcohol-induced disorder; Y90.2 Blood alcohol level of 40-59 mg/100 ml; Z20.822 Contact with and (suspected) exposure to COVID-19; Z86.74 Personal history of sudden cardiac arrest
CPT/HCPCS: 36415; 80053; 80305; 80320; 81003; 83690; 85025; 87635; 93005; 93010; 96360; 99284; C9803

== ENCOUNTER 2021-05-02 13:28 | Emergency (ER) | payer OTHER, MEDICAID, SELFPAY ==
[2019-08-23 01:26] VITALS: BMI 25.0
[2021-05-02] VITALS (27 sets, daily range): BP systolic 112–149; BP diastolic 57–87; PULSE 82–105; RESP 13–23; TEMP 36.8; O2SAT 83–100
--- NOTE | 2021-05-02 13:49 | DI.CT.S_ITS ---
PROCEDURE: CT HEAD/BRAIN WO CON INDICATIONS: altered, unresponsive TECHNIQUE: Noncontrast 4.5 mm thick angled axial sections acquired from the foramen magnum to the vertex, with coronal and sagittal reformats. For radiation dose reduction, the following was used: automated exposure control, adjustment of mA and/or kV according to patient size. COMPARISON: [facility], CT, CT HEAD/BRAIN WO CON, 08/06/2019, 19:51. [facility], CT, HEAD WITHOUT CONTRAST, 04/13/2016, 16:39. [facility], MR, MR HEAD/BRAIN WO/W CON, 08/23/2019, 14:55. [facility], CT, CT HEAD WITHOUT CONTRAST, 06/25/2020, 20:26. FINDINGS: Image quality: Mild streak artifact can be seen through the skull base. CSF spaces: Basal cisterns are patent. No extra-axial fluid collections. Ventricles are normal in size and shape. Brain: No midline shift. No intracranial masses or hemorrhage. Fortune-white matter interface is normal. Skull and face: Calvarium and visualized facial bones are intact, without suspicious lesions. Sinuses: Visualized sinuses and mastoids are clear. IMPRESSION: Normal noncontrast head CT, stable from priors. Dictated by: Sawyer Sena M.D. on 05/02/2021 at 13:07 Approved by: Sawyer Sena M.D. on 05/02/2021 at 13:08
[2021-05-02 13:56] LABS: Add Manual Diff / Slide Review NO; Basophils Absolute Auto 100 /uL (0-100); Basophils Percent Auto 1.1 % (0-2); Eosinophils Absolute Auto 100 /uL (0-450); Eosinophils Percent Auto 0.7 % (2-4); Hematocrit 39.1 % (41-53); Hemoglobin 13.4 g/dL (13.5-17.5); Lymphocytes Absolute Auto 3900 /uL (1100-4500); Lymphocytes Percent Auto 44.5 % (25-40); Mean Corpuscular HGB Conc 34.3 % (30-36); Mean Corpuscular Hemoglobin 30.3 PG (26-34); Mean Corpuscular Volume 88.4 fL (80-100); Monocytes Absolute Auto 800 /uL (0-900); Neutrophils Absolute Auto 3900 /uL (1500-7000); Neutrophils Percent Auto 44.7 % (50-75); Platelet Count 353 X10^3/uL (150-400); Red Blood Cell Count 4.42 X10^6/uL (4.5-5.9); Red Cell Distribution Width 14.3 % (11.6-14.8); White Blood Cell Count 8.7 X10^3/uL (4.5-11.0)
[2021-05-02 14:02] LABS: Lactate (Lactic Acid) 2.3 mmol/L (0.7-2.1)
[2021-05-02 14:04] LABS: Acetaminophen < 10 ug/mL (10-30); Alanine Aminotransferase 28 IU/L (<50); Albumin 3.9 g/dL (3.5-5.0); Albumin Globulin Ratio 1.3 (1.0-2.8); Alkaline Phosphatase 120 U/L (38-126); Aspartate Aminotransferase 33 IU/L (17-59); BUN Creatinine Ratio 13.1 (6-22); Bilirubin Total 0.2 mg/dL (0.2-1.3); Blood Urea Nitrogen 13 mg/dL (9-20); Calcium 8.3 mg/dL (8.4-10.2); Carbon Dioxide 34 mmol/L (22-32); Chloride 101 mmol/L (98-107); Estimated Glomerular Filt Rate > 60.0 mL/min (>60); Globulin 2.9 g/dL (1.7-4.1); Glucose 120 mg/dL (70-100); HEMOLYSIS < 15 (0-50); Potassium 4.4 mmol/L (3.4-5.1); Salicylate < 1.0 mg/dL (<20); Sodium 144 mmol/L (137-145); Total Protein 6.8 g/dL (6.3-8.2)
[2021-05-02] MEDS: SODIUM CHLORIDE 0.9% 1,000 ML 150 ML IV (14:08)
[2021-05-02 14:18] LABS: Ethanol (ETOH) 415 mg/dL
[2021-05-02 14:20] LABS: Prolactin 24.9 ng/mL (3.7-17.9)
[2021-05-02 14:50] LABS: UR Morphine/Opiate cutoff 300 Negative (Negative); Ur Creatinine Normal (Normal); Ur Specific Gravity Normal (Normal); Urine Amphetamines Negative (Negative); Urine Barbiturates Negative (Negative); Urine Benzodiazepines Negative (Negative); Urine Cocaine Negative (Negative); Urine MDMA Negative (Negative); Urine Methadone Negative (Negative); Urine Methamphetamines Negative (Negative); Urine Oxycodone Negative (Negative); Urine Phencyclidine Negative (Negative); Urine Tetrahydrocannabinol Negative (Negative); Urine Tricyclic Antidepressant Negative (Negative); Urine pH Normal (Normal)
[2021-05-02 14:51] LABS: Thyroid Stimulating Hormone 0.468 uIU/mL (0.47-4.68)
--- NOTE | 2021-05-02 15:18 | ED.ALCOHOL ---
HPI - Alcohol <Dann Ward DO - Last Filed: 05/08/21 06:28> General Chief Complaint: Toxicology Problem Time Seen by Provider: 05/02/21 13:48 Source: EMS Mode of arrival: EMS History of Present Illness HPI narrative: 40-year-old male smoker with heavy alcohol and narcotic use presents by EMS for evaluation presumed alcohol abuse. He was apparently found standing between 2 vehicles in a parking lot and reporting libertarian notified please do than activated EMS. He is slurring speech, very confused and not participating in the exam. He has got a superficial abrasion on his head but no other signs of injury. There is no report of other paraphernalia Related Data Home Medications Medication Instructions Recorded Confirmed aripiprazole 10 mg tablet 10 mg PO BEDTIME 10/06/20 10/07/20 clonidine HCl 0.1 mg tablet 0.1 mg PO BEDTIME 10/06/20 10/07/20 sertraline 25 mg tablet 25 mg PO QAM 10/06/20 10/06/20 Previous Rx's Medication Instructions Recorded quetiapine 100 mg tablet (Seroquel) 100 mg PO BEDTIME #30 tab 08/25/19 lorazepam 1 mg tablet (Ativan) 1 mg PO BEDTIME PRN #10 tab 10/07/20 lorazepam 1 mg tablet (Ativan) 1 mg PO BID PRN #16 tab 10/07/20 naloxone 4 mg/actuation nasal 4 mg INTRANASAL Q2M PRN #2 ea 10/07/20 spray (Narcan) Allergies Allergy/AdvReac Type Severity Reaction Status Date / Time No Known Drug Allergies Allergy Verified 10/06/20 20:08 Review of Systems <Dann Ward DO - Last Filed: 05/08/21 06:28> Review of Systems ROS Unobtainable: Unobtainable due to mental status/LOC Patient History <Dann Ward DO - Last Filed: 05/08/21 06:28> Medical History (Updated 05/03/21 @ 05:55 by Luis Miguel Swift DO) Alcohol intoxication Alcohol use disorder Alcohol withdrawal delirium, acute, mixed level of activity Family History Father Fire accident Mother Cancer Social History household members: none Smoking Status: Smoker, status unknown alcohol intake: current substance use type: methamphetamine Smoking Status: Smoker, status unknown alcohol intake frequency: 3 or more drinks per day Substance Use Type: marijuana Exam <Dann Ward DO - Last Filed: 05/08/21 06:28> Narrative Exam Narrative: GENERAL: [40 year old patient appears stated age. Well-developed patient, in moderate distress, arousable to noxious stimuli, guarding his airway but not speaking intelligently, HEAD: Superficial abrasion to forehead over the bridge of the nose, no evidence of depressed skull fracture EYES: Pupils equal round and reactive. No hyphema Extraocular motions intact. No scleral icterus. No injection or drainage. ENT: Nose without bleeding, purulent drainage. Throat without erythema, tonsillar hypertrophy or exudate. Airway patent. NECK: Trachea midline. Non tender CARDIOVASCULAR: Regular rate and rhythm without murmurs, gallops, or rubs. RESPIRATORY: Clear to auscultation. Breath sounds equal bilaterally. No wheezes, rales, or rhonchi. GASTROINTESTINAL: Abdomen soft, non-tender, nondistended. EXTREMITIES: No edema or joint tenderness. BACK: Nontender without deformity or crepitance. No flank tenderness. SKIN: No rash or erythema of visible areas Initial Vital Signs Initial Vital Signs: Vital Signs Pulse Rate 92 H 05/02/21 13:35 Pulse Oximetry 93 05/02/21 13:35 <Luis Miguel Swift, DO - Last Filed: 05/03/21 06:38> Initial Vital Signs Initial Vital Signs: Vital Signs Pulse Rate 92 H 05/02/21 13:35 Pulse Oximetry 93 05/02/21 13:35 Course <Dann Ward DO - Last Filed: 05/08/21 06:28> Orders Ordered: Discontinued Medications Sodium Chloride (Normal Saline 0.9%) 1,000 mls @ 150 mls/hr IV CONT DESMOND Last Infusion: 05/02/21 21:19 Dose: 0 mls/hr Documented by: Admin: 05/02/21 14:08 Dose: 150 mls/hr Documented by: CRISTAL Morphine Sulfate (Morphine 4 Mg/Ml Inj) 4 mg IV NOW ONE Stop: 05/03/21 01:48 Last Admin: 05/03/21 01:53 Dose: Not Given Documented by: TRACY Reevaluation(s) Reevaluation #1: Patient continuing to workup, still slurring his words, denies any suicidal or homicidal ideation. At this point there is no indication for hospitalization but he is not appropriate for discharge yet. Vital Signs Vital signs: Vital Signs - 8 hr 05/02/21 23:00 05/02/21 23:30 05/03/21 00:00 Pulse Rate 105 H 98 H 100 H Respiratory Rate 13 14 14 Blood Pressure 145/77 H 143/74 H 146/72 H Pulse Oximetry 98 98 98 05/03/21 00:30 05/03/21 01:00 05/03/21 01:30 Pulse Rate 100 H 106 H 101 H Respiratory Rate 13 19 16 Blood Pressure 147/68 H 149/74 H 150/74 H Pulse Oximetry 97 98 97 05/03/21 02:00 05/03/21 02:30 05/03/21 03:00 Pulse Rate 108 H 75 91 H Respiratory Rate 17 13 14 Blood Pressure 157/95 H 160/87 H 147/77 H Pulse Oximetry 99 100 98 <Luis Miguel Swift, - Last Filed: 05/03/21 06:38> Orders Ordered: Discontinued Medications Sodium Chloride (Normal Saline 0.9%) 1,000 mls @ 150 mls/hr IV CONT DESMOND Last Infusion: 05/02/21 21:19 Dose: 0 mls/hr Documented by: Admin: 05/02/21 14:08 Dose: 150 mls/hr Documented by: MATTHEWOTEAmber Morphine Sulfate (Morphine 4 Mg/Ml Inj) 4 mg IV NOW ONE Stop: 05/03/21 01:48 Last Admin: 05/03/21 01:53 Dose: Not Given Documented by: TRACY Vital Signs Vital signs: Vital Signs - 8 hr 05/02/21 23:00 05/02/21 23:30 05/03/21 00:00 Pulse Rate 105 H 98 H 100 H Respiratory Rate 13 14 14 Blood Pressure 145/77 H 143/74 H 146/72 H Pulse Oximetry 98 98 98 05/03/21 00:30 05/03/21 01:00 05/03/21 01:30 Pulse Rate 100 H 106 H 101 H Respiratory Rate 13 19 16 Blood Pressure 147/68 H 149/74 H 150/74 H Pulse Oximetry 97 98 97 05/03/21 02:00 05/03/21 02:30 05/03/21 03:00 Pulse Rate 108 H 75 91 H Respiratory Rate 17 13 14 Blood Pressure 157/95 H 160/87 H 147/77 H Pulse Oximetry 99 100 98 MDM - Alcohol <Dann Ward DO - Last Filed: 05/08/21 06:28> Lab Data Result diagrams: 05/02/21 13:36 05/02/21 13:36 Labs: Lab Results 05/02/21 05/02/21 05/02/21 Range/Units 13:36 13:36 13:36 WBC 8.7 (4.5-11.0) X10^3/uL RBC 4.42 L (4.5-5.9) X10^6/uL Hgb 13.4 L (13.5-17.5) g/dL Hct 39.1 L (41-53) % MCV 88.4 (80-100) fL MCH 30.3 (26-34) PG MCHC 34.3 (30-36) % RDW 14.3 (11.6-14.8) % Plt Count 353 (150-400) X10^3/uL Neut % (Auto) 44.7 L (50-75) % Lymph % (Auto) 44.5 H (25-40) % [place] % (Auto) 9.0 (3-14) % Eos % (Auto) 0.7 L (2-4) % Baso % (Auto) 1.1 (0-2) % Neut # (Auto) 3900 (0055-4198) /uL Lymph # (Auto) 3900 (2921-4654) /uL [place] # (Auto) 800 (0-900) /uL Eos # (Auto) 100 (0-450) /uL Baso # (Auto) 100 (0-100) /uL Sodium 144 (137-145) mmol/L Potassium 4.4 (3.4-5.1) mmol/L Chloride 101 (98-107) mmol/L Carbon Dioxide 34 H (22-32) mmol/L BUN 13 (9-20) mg/dL Creatinine 0.99 (0.66-1.25) mg/dL Estimated GFR > 60.0 (>60) mL/min BUN/Creatinine Ratio 13.1 (6-22) Glucose 120 H (70-100) mg/dL Lactate 2.3 H (0.7-2.1) mmol/L Calcium 8.3 L (8.4-10.2) mg/dL Total Bilirubin 0.2 (0.2-1.3) mg/dL AST 33 (17-59) IU/L ALT 28 (<50) IU/L Alkaline Phosphatase 120 (38-126) U/L Total Protein 6.8 (6.3-8.2) g/dL Albumin 3.9 (3.5-5.0) g/dL Globulin 2.9 (1.7-4.1) g/dL Albumin/Globulin Ratio 1.3 (1.0-2.8) TSH (0.47-4.68) uIU/mL Prolactin 24.9 H (3.7-17.9) ng/mL Salicylates < 1.0 (<20) mg/dL U Opiates 300ng/mL cut (Negative) Ur Oxycodone Screen (Negative) Urine Methadone Screen (Negative) Acetaminophen < 10 L (10-30) ug/mL Ur Barbiturates Screen (Negative) U Tricyclic Antidepress (Negative) Ur Phencyclidine Scrn (Negative) Ur Amphetamines Screen (Negative) U Methamphetamines Scrn (Negative) Ur MDMA Scrn (Ecstasy) (Negative) U Benzodiazepines Scrn (Negative) Urine Cocaine Screen (Negative) U Marijuana (THC) Screen (Negative) Ethyl Alcohol 415 H* ( - 10) mg/dL 05/02/21 05/02/21 05/02/21 Range/Units 13:36 14:40 16:45 WBC (4.5-11.0) X10^3/uL RBC (4.5-5.9) X10^6/uL Hgb (13.5-17.5) g/dL Hct (41-53) % MCV (80-100) fL MCH (26-34) PG MCHC (30-36) % RDW (11.6-14.8) % Plt Count (150-400) X10^3/uL Neut % (Auto) (50-75) % Lymph % (Auto) (25-40) % [place] % (Auto) (3-14) % Eos % (Auto) (2-4) % Baso % (Auto) (0-2) % Neut # (Auto) (1535-6605) /uL Lymph # (Auto) (4705-3721) /uL [place] # (Auto) (0-900) /uL Eos # (Auto) (0-450) /uL Baso # (Auto) (0-100) /uL Sodium (137-145) mmol/L Potassium (3.4-5.1) mmol/L Chloride (98-107) mmol/L Carbon Dioxide (22-32) mmol/L BUN (9-20) mg/dL Creatinine (0.66-1.25) mg/dL Estimated GFR (>60) mL/min BUN/Creatinine Ratio (6-22) Glucose (70-100) mg/dL Lactate 1.7 (0.7-2.1) mmol/L Calcium (8.4-10.2) mg/dL Total Bilirubin (0.2-1.3) mg/dL AST (17-59) IU/L ALT (<50) IU/L Alkaline Phosphatase (38-126) U/L Total Protein (6.3-8.2) g/dL Albumin (3.5-5.0) g/dL Globulin (1.7-4.1) g/dL Albumin/Globulin Ratio (1.0-2.8) TSH 0.468 L (0.47-4.68) uIU/mL Prolactin (3.7-17.9) ng/mL Salicylates (<20) mg/dL U Opiates 300ng/mL cut Negative (Negative) Ur Oxycodone Screen Negative (Negative) Urine Methadone Screen Negative (Negative) Acetaminophen (10-30) ug/mL Ur Barbiturates Screen Negative (Negative) U Tricyclic Antidepress Negative (Negative) Ur Phencyclidine Scrn Negative (Negative) Ur Amphetamines Screen Negative (Negative) U Methamphetamines Scrn Negative (Negative) Ur MDMA Scrn (Ecstasy) Negative (Negative) U Benzodiazepines Scrn Negative (Negative) Urine Cocaine Screen Negative (Negative) U Marijuana (THC) Screen Negative (Negative) Ethyl Alcohol ( - 10) mg/dL Point of Care Testing Glucose POC 120 <Luis Miguel Swift DO - Last Filed: 05/03/21 06:38> Lab Data Labs: Lab Results 05/02/21 05/02/21 05/02/21 Range/Units 13:36 13:36 13:36 WBC 8.7 (4.5-11.0) X10^3/uL RBC 4.42 L (4.5-5.9) X10^6/uL Hgb 13.4 L (13.5-17.5) g/dL Hct 39.1 L (41-53) % MCV 88.4 (80-100) fL MCH 30.3 (26-34) PG MCHC 34.3 (30-36) % RDW 14.3 (11.6-14.8) % Plt Count 353 (150-400) X10^3/uL Neut % (Auto) 44.7 L (50-75) % Lymph % (Auto) 44.5 H (25-40) % [place] % (Auto) 9.0 (3-14) % Eos % (Auto) 0.7 L (2-4) % Baso % (Auto) 1.1 (0-2) % Neut # (Auto) 3900 (7232-3177) /uL Lymph # (Auto) 3900 (8039-5671) /uL [place] # (Auto) 800 (0-900) /uL Eos # (Auto) 100 (0-450) /uL Baso # (Auto) 100 (0-100) /uL Sodium 144 (137-145) mmol/L Potassium 4.4 (3.4-5.1) mmol/L Chloride 101 (98-107) mmol/L Carbon Dioxide 34 H (22-32) mmol/L BUN 13 (9-20) mg/dL Creatinine 0.99 (0.66-1.25) mg/dL Estimated GFR > 60.0 (>60) mL/min BUN/Creatinine Ratio 13.1 (6-22) Glucose 120 H (70-100) mg/dL Lactate 2.3 H (0.7-2.1) mmol/L Calcium 8.3 L (8.4-10.2) mg/dL Total Bilirubin 0.2 (0.2-1.3) mg/dL AST 33 (17-59) IU/L ALT 28 (<50) IU/L Alkaline Phosphatase 120 (38-126) U/L Total Protein 6.8 (6.3-8.2) g/dL Albumin 3.9 (3.5-5.0) g/dL Globulin 2.9 (1.7-4.1) g/dL Albumin/Globulin Ratio 1.3 (1.0-2.8) TSH (0.47-4.68) uIU/mL Prolactin 24.9 H (3.7-17.9) ng/mL Salicylates < 1.0 (<20) mg/dL U Opiates 300ng/mL cut (Negative) Ur Oxycodone Screen (Negative) Urine Methadone Screen (Negative) Acetaminophen < 10 L (10-30) ug/mL Ur Barbiturates Screen (Negative) U Tricyclic Antidepress (Negative) Ur Phencyclidine Scrn (Negative) Ur Amphetamines Screen (Negative) U Methamphetamines Scrn (Negative) Ur MDMA Scrn (Ecstasy) (Negative) U Benzodiazepines Scrn (Negative) Urine Cocaine Screen (Negative) U Marijuana (THC) Screen (Negative) Ethyl Alcohol 415 H* ( - 10) mg/dL 05/02/21 05/02/21 05/02/21 Range/Units 13:36 14:40 16:45 WBC (4.5-11.0) X10^3/uL RBC (4.5-5.9) X10^6/uL Hgb (13.5-17.5) g/dL Hct (41-53) % MCV (80-100) fL MCH (26-34) PG MCHC (30-36) % RDW (11.6-14.8) % Plt Count (150-400) X10^3/uL Neut % (Auto) (50-75) % Lymph % (Auto) (25-40) % [place] % (Auto) (3-14) % Eos % (Auto) (2-4) % Baso % (Auto) (0-2) % Neut # (Auto) (7189-5703) /uL Lymph # (Auto) (4649-3480) /uL [place] # (Auto) (0-900) /uL Eos # (Auto) (0-450) /uL Baso # (Auto) (0-100) /uL Sodium (137-145) mmol/L Potassium (3.4-5.1) mmol/L Chloride (98-107) mmol/L Carbon Dioxide (22-32) mmol/L BUN (9-20) mg/dL Creatinine (0.66-1.25) mg/dL Estimated GFR (>60) mL/min BUN/Creatinine Ratio (6-22) Glucose (70-100) mg/dL Lactate 1.7 (0.7-2.1) mmol/L Calcium (8.4-10.2) mg/dL Total Bilirubin (0.2-1.3) mg/dL AST (17-59) IU/L ALT (<50) IU/L Alkaline Phosphatase (38-126) U/L Total Protein (6.3-8.2) g/dL Albumin (3.5-5.0) g/dL Globulin (1.7-4.1) g/dL Albumin/Globulin Ratio (1.0-2.8) TSH 0.468 L (0.47-4.68) uIU/mL Prolactin (3.7-17.9) ng/mL Salicylates (<20) mg/dL U Opiates 300ng/mL cut Negative (Negative) Ur Oxycodone Screen Negative (Negative) Urine Methadone Screen Negative (Negative) Acetaminophen (10-30) ug/mL Ur Barbiturates Screen Negative (Negative) U Tricyclic Antidepress Negative (Negative) Ur Phencyclidine Scrn Negative (Negative) Ur Amphetamines Screen Negative (Negative) U Methamphetamines Scrn Negative (Negative) Ur MDMA Scrn (Ecstasy) Negative (Negative) U Benzodiazepines Scrn Negative (Negative) Urine Cocaine Screen Negative (Negative) U Marijuana (THC) Screen Negative (Negative) Ethyl Alcohol ( - 10) mg/dL Point of Care Testing Glucose POC 120 MDM Narrative Medical decision making narrative: Dr Swift: Received turned over. Review patient's history physical and labs up to this point. Patient was able to ambulate. Was clinically sober. Is tolerating oral intake. No further workup needed in the emergency department. Will discharge. Discharge Plan Departure Patient Disposition: Home Clinical Impression: Alcohol intoxication Instructions: DI for Alcohol Use Disorder Activity Restrictions/Additional Instructions: No driving for the next 24 hours or in the future if you drink alcohol. Continue all of your medications as directed. Contact your primary doctor for a follow-up. Return to the emergency department for any new or worsening symptoms. Prescriptions: No Action quetiapine [Seroquel] 100 mg tablet 100 mg PO BEDTIME Qty: 30 0RF clonidine HCl 0.1 mg tablet 0.1 mg PO BEDTIME 0RF sertraline 25 mg tablet 25 mg PO QAM 0RF aripiprazole 10 mg tablet 10 mg PO BEDTIME 0RF Label Comments: take 1 tablet by mouth at bedtime lorazepam [Ativan] 1 mg tablet 1 mg PO BID PRN (Reason: alcohol withdrawal) Qty: 16 0RF Rx Instructions: 2 tabs TID for 24hrs, then 2 tabs BID for 24 hrs, then 1 tab TID for 24 hrs, then 1 tab BID for 24hrs, then one tab lorazepam [Ativan] 1 mg tablet 1 mg PO BEDTIME PRN (Reason: alcohol withdrawal) Qty: 10 0RF Rx Instructions: 1 QID x 24hs, then TID x 24hrs, then BID x 24hrs, then one for 24hrs Narcan 4 mg/actuation spray,non-aerosol 4 mg intranasal Q2M PRN (Reason: opioid overdose) Qty: 2 0RF Rx Instructions: spray 1 dose into ONE nostril; alternate nostrils w each dose until help arrives Stand Alone Forms: Naloxone Standing Order CHANDU
[2021-05-02 15:52] LABS: Reflexed Lactate in 2 Hours Y
[2021-05-02 17:15] LABS: Lactate 2HR (Lactic Acid Rflx) 1.7 mmol/L (0.7-2.1)
[2021-05-03] VITALS (8 sets, daily range): BP systolic 144–160; BP diastolic 68–95; PULSE 75–108; RESP 13–22; O2SAT 97–100
== END 2021-05-03 07:25 | disposition home or self-care (01) ==
PROVIDERS: Emergency Medicine; Emergency Provider Emergency Medicine
DX: F10.129 Alcohol abuse with intoxication, unspecified (principal); Y90.8 Blood alcohol level of 240 mg/100 ml or more
CPT/HCPCS: 36415; 51798; 70450; 80053; 80305; 80320; 80329; 82962; 83605; 84146; 84443; 85025; 99284; 99285; G0480

== ENCOUNTER 2021-11-19 23:46 | Emergency (ER) | payer OTHER, MEDICAID, SELFPAY ==
[2019-08-23 01:26] VITALS: BMI 25.0
[2021-11-19 23:46] VITALS: BP 147/92; PULSE 99; RESP 17; TEMP 36.5; O2SAT 100; BMI 23.0
--- NOTE | 2021-11-19 23:53 | ED_ITS ---
HPI - General Adult General Chief complaint: Extremity Problem,Nontraumatic Stated complaint: Fit for care home Time Seen by Provider: 11/19/21 23:50 History of Present Illness HPI narrative: 41-year-old male smoker with history of alcohol abuse presents by [facility] for evaluation and medical clearance for incarceration. Patient has no complaints and denies any head neck or back pain. He denies any chest pain shortness of breath, cough or trouble breathing. He is had no nausea, vomiting or diarrhea. He states he has been drinking but is unclear how much. He denies use of any street drugs. He does complain of a healing wound on his scalp Related Data Home Medications Medication Instructions Recorded Confirmed aripiprazole 10 mg tablet 10 mg PO BEDTIME 10/06/20 10/07/20 clonidine HCl 0.1 mg tablet 0.1 mg PO BEDTIME 10/06/20 10/07/20 sertraline 25 mg tablet 25 mg PO QAM 10/06/20 10/06/20 Previous Rx's Medication Instructions Recorded quetiapine 100 mg tablet (Seroquel) 100 mg PO BEDTIME #30 tabs 08/25/19 lorazepam 1 mg tablet (Ativan) 1 mg PO BEDTIME PRN alcohol 10/07/20 withdrawal #10 tabs lorazepam 1 mg tablet (Ativan) 1 mg PO BID PRN alcohol withdrawal 10/07/20 #16 tabs naloxone 4 mg/actuation nasal 4 mg intranasal Q2M PRN opioid 10/07/20 spray (Narcan) overdose #2 ea doxycycline hyclate 100 mg tablet 100 mg PO BID #20 tabs 11/19/21 Allergies Allergy/AdvReac Type Severity Reaction Status Date / Time No Known Drug Allergies Allergy Verified 10/06/20 20:08 Review of Systems Review of Systems Narrative: GENERAL: Denies chills, fatigue, malaise, fever, sweats. HEENT: Denies sinus pain, ear pain, sore throat, difficulty swallowing, dizziness. RESPIRATORY: Denies dyspnea, cough, wheezing, hemoptysis, sputum. CARDIOVASCULAR: Denies chest pain, palpitations, orthopnea, edema, GASTROINTESTINAL: Denies nausea, vomiting, abdominal pain, diarrhea, constipation, melena. : Denies dysuria, frequency, incontinence, hematuria, urinary retention. MUSCULOSKELETAL: denies weakness, joint pain, or bony pain SKIN: See HPI NEUROLOGIC: Denies weakness, headache, numbness, change in speech, confusion, seizures, incoordination. PSYCHIATRIC: No concerning psychosocial issues. 12 point review of systems is negative except for those stated above Patient History Medical History Alcohol intoxication Alcohol use disorder Alcohol withdrawal delirium, acute, mixed level of activity Family History Father Fire accident Mother Cancer Social History household members: none Smoking Status: Smoker, status unknown alcohol intake: current substance use type: methamphetamine Smoking Status: Smoker, status unknown alcohol intake frequency: 3 or more drinks per day Substance Use Type: marijuana Exam Narrative Exam Narrative: GENERAL: [41] year old patient appears stated age. Well-developed patient, in mild distress. Angry, not terribly cooperative. Smells of alcohol. GCS 15, speaking clearly, alert and oriented, able to walk a straight line HEAD: Atraumatic. Normocephalic. Healing, scabbed lesion on superior occiput without drainage, erythema, fluctuance or induration EYES: Pupils equal round and reactive. Extraocular motions intact. No scleral i cterus. No injection or drainage. ENT: Nose without bleeding, purulent drainage. Throat without erythema, tonsillar hypertrophy or exudate. Airway patent. NECK: Trachea midline. Non tender CARDIOVASCULAR: Regular rate and rhythm without murmurs, gallops, or rubs. RESPIRATORY: Clear to auscultation. Breath sounds equal bilaterally. No wheezes, rales, or rhonchi. GASTROINTESTINAL: Abdomen soft, non-tender, nondistended. EXTREMITIES: Minimal erythema on bilateral plantar surface with some scaling of the skin, no pain, breaks in the skin, edema. Cap refill less than 2 seconds, dorsal pedal pulse intact. BACK: Nontender without deformity or crepitance. No flank tenderness. NEURO: AOx3. SKIN: No rash or erythema of visible areas Initial Vital Signs Initial Vital Signs: Vital Signs Temperature 97.7 F 11/19/21 23:46 Pulse Rate 99 H 11/19/21 23:46 Respiratory Rate 17 11/19/21 23:46 Blood Pressure 147/92 H 08/30/22 23:46 Pulse Oximetry 100 08/30/22 23:46 Oxygen Delivery Method 11/19/21 23:46 Discharge Plan Departure Patient Disposition: Home Clinical Impression: Medical clearance for incarceration, Intoxication, Lesion of skin of scalp Activity Restrictions/Additional Instructions: *You have been diagnosed with [scalp lesion, intoxication and medical clearance for incarceration] *What to do: *Please continue to take your regular medications as directed. *Please follow up with your primary care provider in 2-3 days, call for an appointment. Let them know you were seen in the Emergency Department and that we ask that you be seen in follow up. We will electronically transmit a record of today's note if your PCP is in our system *If you do not have a primary care provider please contact the [facility] Resource line at [phone]. They will ask some questions about your medical history and help get you set up with a doctor in the community. *Return to Emergency Department if you should have any new, worsening or concerning symptoms, such as [fever greater than 101 F, shaking chills, worsening pain, persistent vomiting or other bothersome symptoms] Prescriptions: New doxycycline hyclate 100 mg tablet 100 mg PO BID Qty: 20 0RF No Action quetiapine [Seroquel] 100 mg tablet 100 mg PO BEDTIME Qty: 30 0RF clonidine HCl 0.1 mg tablet 0.1 mg PO BEDTIME sertraline 25 mg tablet 25 mg PO QAM aripiprazole 10 mg tablet 10 mg PO BEDTIME Label Comments: take 1 tablet by mouth at bedtime lorazepam [Ativan] 1 mg tablet 1 mg PO BID PRN (Reason: alcohol withdrawal) Qty: 16 0RF Rx Instructions: 2 tabs TID for 24hrs, then 2 tabs BID for 24 hrs, then 1 tab TID for 24 hrs, then 1 tab BID for 24hrs, then one tab lorazepam [Ativan] 1 mg tablet 1 mg PO BEDTIME PRN (Reason: alcohol withdrawal) Qty: 10 0RF Rx Instructions: 1 QID x 24hs, then TID x 24hrs, then BID x 24hrs, then one for 24hrs Narcan 4 mg/actuation spray,non-aerosol 4 mg intranasal Q2M PRN (Reason: opioid overdose) Qty: 2 0RF Rx Instructions: spray 1 dose into ONE nostril; alternate nostrils w each dose until help arrives Visit Report Forms: Patient Portal/API
== END 2021-11-20 00:07 | disposition home or self-care (01) ==
PROVIDERS: Emergency Provider Emergency Medicine
DX: Z00.8 Encounter for other general examination (principal); L98.9 Disorder of the skin and subcutaneous tissue, unspecified; F10.129 Alcohol abuse with intoxication, unspecified
CPT/HCPCS: 99281